=== PATIENT | male | born 1950 | race Caucasian/White ===

== ENCOUNTER 2020-05-06 21:53 | Observation (INO) | payer OTHER, BC ==
[2020-05-06 22:12] VITALS: BMI 29.5
[2020-05-07 00:14] LABS: BASO % 0.6 % (0-2.0); EOS % 1.7 % (0-4.5); HEMATOCRIT 35.3 % (35.4-49); HEMOGLOBIN 11.3 GM/dL (11.7-16.9); LYMPH % 9.2 % (8-40); MCH 28.7 pg (25.7-33.7); MCHC 32.2 g/dl (32.0-35.9); MEAN CELL VOLUME 89.1 fl (80-96); NEUT % 81.5 % (42.8-82.8); RBC 3.96 M/mm3 (4.00-5.60); RDW 14.1 % (11.9-15.9); WHITE BLOOD COUNT 8.8 K/mm3 (4.0-10.0)
[2020-05-07 00:20] LABS: MEAN PLT VOLUME 8.9 fl (7.5-11.1); PLATELET COUNT 165 K/MM3 (134-434)
[2020-05-07 00:28] LABS: INR 0.95 (0.83-1.09); PROTHROMBIN TIME (PATIENT) 11.5 SEC (9.7-13.0)
[2020-05-07 00:30] LABS: ACTIVATED PTT 28.5 SECONDS (25.2-36.5)
[2020-05-07 00:38] LABS: POTASSIUM 4.4 mmol/L (3.5-5.1)
[2020-05-07 00:40] LABS: ALBUMIN 3.3 g/dl (3.4-5.0); BLOOD UREA NITROGEN 30.2 mg/dL (7-18); CALCIUM 8.8 mg/dL (8.5-10.1)
[2020-05-07 00:43] LABS: CREATININE 1.5 mg/dL (0.55-1.3)
[2020-05-07 01:32] LABS: TOT PROT 6.7 g/dl (6.4-8.2)
[2020-05-07 01:37] LABS: BILIRUBIN,TOTAL 0.3 mg/dL (0.2-1)
[2020-05-07] MEDS ORDERED: SODIUM CHLORIDE 1,000 ML IV SCH (02:30)
[2020-05-07] MEDS ORDERED: HEPARIN NA (PORCINE) 5,000 UNITS/ML 1ML VIAL ONE ×2 (06:08→14:15)
[2020-05-07] MEDS: HEPARIN NA (PORCINE) 5,000 UNITS/ML 1ML VIAL SQ SCH ×2 (06:17→14:20)
[2020-05-07 06:30] LABS: HEMATOCRIT 34.4 % (35.4-49); MCH 28.4 pg (25.7-33.7); MCHC 31.9 g/dl (32.0-35.9); MEAN CELL VOLUME 89.1 fl (80-96); PLATELET COUNT 158 K/MM3 (134-434); RBC 3.86 M/mm3 (4.00-5.60); WHITE BLOOD COUNT 6.9 K/mm3 (4.0-10.0)
[2020-05-07 06:41] LABS: CHLORIDE 114 mmol/L (98-107); POTASSIUM 4.2 mmol/L (3.5-5.1); SODIUM 145 mmol/L (136-145)
[2020-05-07 06:42] LABS: ANION GAP 3 MMOL/L (8-16); BLOOD UREA NITROGEN 27.9 mg/dL (7-18); CALCIUM 8.4 mg/dL (8.5-10.1); CO2 29 mmol/L (21-32); GLUCOSE,RANDOM 107 mg/dL (74-106); MAGNESIUM 2.2 mg/dL (1.8-2.4)
[2020-05-07 06:45] LABS: CREATININE 1.5 mg/dL (0.55-1.3)
[2020-05-07] MEDS ORDERED: IPRATROPIUM BR 0.02% 0.5 MG/2.5 ML VIAL.NEB. NEB SCH (08:00)
[2020-05-07] MEDS ORDERED: TAMSULOSIN HCL 0.4 MG CAP PO SCH (08:30)
[2020-05-07 08:31] LABS: URINE COLOR YELLOW
[2020-05-07 08:32] LABS: PH,URINE 7.5 (5.0-8.0); URINE APPEARANCE CLEAR; URINE BILIRUBIN NEGATIVE (NEGATIVE); URINE GLUCOSE (UA) NEGATIVE (NEGATIVE); URINE KETONE NEGATIVE (NEGATIVE); URINE LEUK ESTERASE NEGATIVE (NEGATIVE); URINE NITRITE NEGATIVE (NEGATIVE); URINE PROTEIN NEGATIVE (NEGATIVE); URINE RBC 1.1 /uL (0-23.9); URINE UROBILINOGEN 0.2 mg/dL (0.2-1.0); URINE WBC 0.2 /uL (0-25.8)
[2020-05-07 08:33] LABS: EPI CELLS 0.5 /uL (0-25.1); HYALINE CASTS 0.12 /uL (0-3.1); URINE BACTERIA 8.6 /uL (0-1359)
[2020-05-07] MEDS ORDERED: clonazePAM 0.5 MG TABLET PO SCH (10:00)
[2020-05-07] MEDS ORDERED: POLYETHYLENE GLYCOL 3350 119 GM BTL PO SCH (10:00)
[2020-05-07] MEDS ORDERED: OLANZapine 7.5 MG TABLET PO SCH (10:00)
[2020-05-07] MEDS ORDERED: BACITRACIN 15 GM TUBE TOPICAL OINTMENT TP SCH (10:00)
[2020-05-07] MEDS ORDERED: LITHIUM CARBONATE 150 MG CAPSULE PO SCH (10:00)
[2020-05-07] MEDS ORDERED: risperiDONE 1 MG TABLET PO SCH (10:00)
[2020-05-07] MEDS ORDERED: OLANZAPINE 5 MG, OLANZAPINE 2.5 MG PO SCH (10:00)
[2020-05-07 14:33] LABS: CHOLESTEROL 173 mg/dL (50-200); LDL CHOLESTEROL (ONLY SJRH) 112 mg/dL (5-100); TRIGLYCERIDES 95 mg/dL (0-150)
[2020-05-07 14:36] LABS: HDL CHOLESTEROL 53 mg/dL (40-60)
[2020-05-07 14:37] LABS: N-TERMINAL BNP 38.5 pg/ml (5-125)
[2020-05-07] MEDS ORDERED: CEFTRIAXONE 1 GM in DEXTROSE 5%-WATER - 50 ML IVPB SCH (15:15)
[2020-05-07] MEDS ORDERED: CEFTRIAXONE 1 GM/50 ML BAG ONE (15:39)
[2020-05-07 15:46] VITALS: TEMP 98
[2020-05-07 16:55] VITALS: BP 143/77; PULSE 67
[2020-05-07] MEDS ORDERED: SENNOSIDES 8.6MG TABLET (FP) PO SCH (22:00)
== END 2020-05-07 18:50 ==
LOC: JER 21:53 → JERBED 05-07 02:21
PROVIDERS: ADMIT Hospitalist; ATTEND Internal Medicine
PROC: 3E03329 Introduction of Other Anti-infective into Peripheral Vein, Percutaneous Approach (ICD-10-PCS; principal; 2020-05-07)
PROC: 3E023GC Introduction of Other Therapeutic Substance into Muscle, Percutaneous Approach (ICD-10-PCS; 2020-05-07)
PROC: 3E0337Z Introduction of Electrolytic and Water Balance Substance into Peripheral Vein, Percutaneous Approach (ICD-10-PCS; 2020-05-07)
DX: S00.03XA Contusion of scalp, initial encounter (principal); R00.1 Bradycardia, unspecified; N40.0 Benign prostatic hyperplasia without lower urinary tract symptoms; L03.116 Cellulitis of left lower limb; W18.39XA Other fall on same level, initial encounter; Y93.89 Activity, other specified; Y92.129 Unspecified place in nursing home as the place of occurrence of the external cause; J44.9 Chronic obstructive pulmonary disease, unspecified; Z99.3 Dependence on wheelchair; F80.81 Childhood onset fluency disorder; H54.40 Blindness, one eye, unspecified eye; I45.10 Unspecified right bundle-branch block
CPT/HCPCS: 36415; 70450-TC; 71045-TC-FY; 72125-TC; 74176-TC; 76870-TC; 80048; 80053; 80061; 80178; 81003; 82140; 82272; 82607; 83036; 83721; 83735; 83880; 84443; 84484; 85025; 85027; 85610; 85730; 86780; 86850; 86900; 86901; 87077; 87086; 93005; 93010; 93306-TC; 93880-TC; 96361; 96365; 96372; 99285-25; C9803; G0378; J1644; U0003

== ENCOUNTER 2020-07-05 03:46 | Inpatient (IN) | payer OTHER ==
[2020-07-05] MEDS ORDERED: LIDOCAINE HCL 1%, 10 MG/ML (50 mL VIAL) SQ ONE (05:13)
[2020-07-05 05:19] LABS: HEMATOCRIT 37.8 % (35.4-49); HEMOGLOBIN 12.3 GM/dL (11.7-16.9); MCH 28.6 pg (25.7-33.7); MCHC 32.5 g/dl (32.0-35.9); MEAN PLT VOLUME 8.9 fl (7.5-11.1); PLATELET COUNT 165 K/MM3 (134-434); RBC 4.29 M/mm3 (4.00-5.60); RDW 14.4 % (11.9-15.9); WHITE BLOOD COUNT 6.5 K/mm3 (4.0-10.0)
[2020-07-05] MEDS ORDERED: LIDOCAINE HCL 2% (20ML MULTI-DOSE VIAL) ONE (05:20)
[2020-07-05 05:32] LABS: CHLORIDE 110 mmol/L (98-107); POTASSIUM 4.8 mmol/L (3.5-5.1); SODIUM 140 mmol/L (136-145)
[2020-07-05 05:34] LABS: ALBUMIN 3.4 g/dl (3.4-5.0); ANION GAP 3 MMOL/L (8-16); BLOOD UREA NITROGEN 39.9 mg/dL (7-18); CALCIUM 9.1 mg/dL (8.5-10.1); CO2 27 mmol/L (21-32); GLUCOSE,RANDOM 91 mg/dL (74-106)
[2020-07-05 05:37] LABS: SGOT/AST 13 U/L (15-37); SGPT/ALT 13 U/L (13-61)
[2020-07-05 05:39] LABS: BILIRUBIN,TOTAL 0.2 mg/dL (0.2-1); TOT PROT 6.8 g/dl (6.4-8.2)
[2020-07-05 05:40] LABS: ALK PHOS 75 U/L (45-117)
[2020-07-05] MEDS ORDERED: ACETAMINOPHEN 325 MG TABLET (FP) PO ONE (06:10)
[2020-07-05] MEDS ORDERED: ACETAMINOPHEN 325 MG TABLET (FP) ONE (06:53)
[2020-07-05] MEDS ORDERED: SODIUM CHLORIDE 1,000 ML IV STA (07:51)
[2020-07-05 08:30] LABS: URINE APPEARANCE CLEAR; URINE BILIRUBIN NEGATIVE (NEGATIVE); URINE COLOR YELLOW; URINE GLUCOSE (UA) NEGATIVE (NEGATIVE); URINE KETONE NEGATIVE (NEGATIVE); URINE LEUK ESTERASE NEGATIVE (NEGATIVE); URINE NITRITE NEGATIVE (NEGATIVE); URINE PROTEIN NEGATIVE (NEGATIVE); URINE UROBILINOGEN 0.2 mg/dL (0.2-1.0)
[2020-07-05] MEDS ORDERED: ALBUTEROL SO4 HFA INHALER IH PRN (10:52)
[2020-07-05] MEDS ORDERED: clonazePAM 0.5 MG TABLET PO PRN (10:52)
[2020-07-05] MEDS: SODIUM CHLORIDE 1,000 ML IV SCH (12:56)
[2020-07-05 17:27] VITALS: BMI 20.3
[2020-07-05] MEDS ORDERED: risperiDONE 2 MG TABLET PO SCH (22:00)
[2020-07-05] MEDS ORDERED: MIRTAZAPINE 30 MG TABLET PO SCH (22:00)
[2020-07-05] MEDS ORDERED: MIRTAZAPINE 15 MG TABLET (FP) ONE (22:14)
[2020-07-05] MEDS ORDERED: PT OWN MED DRAWER 7, Y5N ONE (22:15)
[2020-07-06] MEDS ORDERED: OLANZapine 7.5 MG TABLET PO SCH (07:00)
[2020-07-06] MEDS: TAMSULOSIN HCL 0.4 MG CAP PO SCH (08:45)
[2020-07-06] MEDS: risperiDONE 1 MG TABLET PO SCH ×2 (10:38→22:16)
[2020-07-06] MEDS: SODIUM CHLORIDE 1,000 ML IV SCH (11:53)
[2020-07-06 14:18] LABS: BASO % 0.7 % (0-2.0); EOS % 1.4 % (0-4.5); HEMATOCRIT 36.2 % (35.4-49); HEMOGLOBIN 11.6 GM/dl (11.7-16.9); LYMPH % 9.3 % (8-40); MCH 28.3 pg (25.7-33.7); MCHC 32.2 g/dl (32.0-35.9); MEAN CELL VOLUME 87.8 fl (80-96); MONO % 6.7 % (3.8-10.2); NEUT % 81.9 % (42.8-82.8); PLATELET COUNT 162 K/MM3 (134-434); RBC 4.12 M/mm3 (4.00-5.60); RDW 13.9 % (11.9-15.9); WHITE BLOOD COUNT 6.8 K/mm3 (4.0-10.8)
[2020-07-06 14:28] LABS: ALBUMIN 3.4 g/dl (3.4-5.0); BILIRUBIN,TOTAL 0.6 mg/dl (0.2-1); CALCIUM 8.8 mg/dl (8.5-10); CREATININE 1.6 mg/dl (0.55-1.3); PHOSPHOROUS 2.8 mg/dl (2.5-4.9); POTASSIUM 4.7 mmol/L (3.5-5.1); TOT PROT 6.1 g/dl (6.4-8.2)
[2020-07-06] MEDS: ACETAMINOPHEN 325 MG TABLET (FP) PO PRN (15:16)
[2020-07-06] MEDS: HEPARIN NA (PORCINE) 5,000 UNITS/ML 1ML VIAL SQ SCH (21:56)
[2020-07-06] MEDS: MIRTAZAPINE 15 MG TABLET (FP) PO SCH (22:16)
[2020-07-07] MEDS: HEPARIN NA (PORCINE) 5,000 UNITS/ML 1ML VIAL SQ SCH ×3 (05:59→21:14)
[2020-07-07] MEDS ORDERED: OLANZapine 5 MG TABLET ONE (08:03)
[2020-07-07] MEDS ORDERED: OLANZapine 2.5 MG TABLET ONE (08:03)
[2020-07-07] MEDS: OLANZAPINE 2.5 MG, OLANZAPINE 5 MG PO SCH (08:04)
[2020-07-07 09:21] LABS: BASO % 0.8 % (0-2.0); EOS % 1.8 % (0-4.5); HEMATOCRIT 39.4 % (35.4-49); HEMOGLOBIN 12.5 GM/dl (11.7-16.9); MCH 28.2 pg (25.7-33.7); MCHC 31.6 g/dl (32.0-35.9); MEAN CELL VOLUME 89.1 fl (80-96); MEAN PLT VOLUME 9.7 fl (7.5-11.1); MONO % 4.9 % (3.8-10.2); NEUT % 77.5 % (42.8-82.8); PLATELET COUNT 165 K/MM3 (134-434); RBC 4.42 M/mm3 (4.00-5.60); RDW 13.9 % (11.9-15.9); WHITE BLOOD COUNT 6.4 K/mm3 (4.0-10.8)
[2020-07-07] MEDS: risperiDONE 1 MG TABLET PO SCH ×2 (09:29→21:15)
[2020-07-07] MEDS: TAMSULOSIN HCL 0.4 MG CAP PO SCH (09:30)
[2020-07-07 09:31] LABS: ALBUMIN 3.5 g/dl (3.4-5.0); BILIRUBIN,TOTAL 0.6 mg/dl (0.2-1); CALCIUM 9.1 mg/dl (8.5-10); CREATININE 1.4 mg/dl (0.55-1.3); MAGNESIUM 2.1 mg/dL (1.8-2.4); POTASSIUM 4.5 mmol/L (3.5-5.1); TOT PROT 6.3 g/dl (6.4-8.2)
[2020-07-07] MEDS: SODIUM CHLORIDE 1,000 ML IV SCH (12:00)
[2020-07-07] MEDS: MIRTAZAPINE 15 MG TABLET (FP) PO SCH (21:15)
[2020-07-08] MEDS ORDERED: OLANZapine 2.5 MG TABLET ONE (06:03)
[2020-07-08] MEDS ORDERED: OLANZapine 5 MG TABLET ONE (06:03)
[2020-07-08] MEDS: OLANZAPINE 2.5 MG, OLANZAPINE 5 MG PO SCH (06:05)
[2020-07-08] MEDS: HEPARIN NA (PORCINE) 5,000 UNITS/ML 1ML VIAL SQ SCH ×4 (06:05→21:23)
[2020-07-08 08:23] LABS: CALCIUM 8.8 mg/dl (8.5-10); CREATININE 1.5 mg/dl (0.55-1.3); POTASSIUM 4.6 mmol/L (3.5-5.1)
[2020-07-08] MEDS: risperiDONE 1 MG TABLET PO SCH ×2 (10:09→21:17)
[2020-07-08] MEDS: TAMSULOSIN HCL 0.4 MG CAP PO SCH (10:09)
[2020-07-08] MEDS: MIRTAZAPINE 15 MG TABLET (FP) PO SCH (21:16)
[2020-07-08] MEDS: ACETAMINOPHEN 325 MG TABLET (FP) PO PRN (21:17)
[2020-07-08] MEDS ORDERED: ATORVASTATIN CA 10 MG TABLET (FP) PO SCH (22:00)
[2020-07-09] MEDS ORDERED: OLANZapine 5 MG TABLET ONE (06:08)
[2020-07-09] MEDS ORDERED: OLANZapine 2.5 MG TABLET ONE (06:08)
[2020-07-09] MEDS: OLANZAPINE 2.5 MG, OLANZAPINE 5 MG PO SCH (07:07)
[2020-07-09] MEDS: HEPARIN NA (PORCINE) 5,000 UNITS/ML 1ML VIAL SQ SCH (07:08)
[2020-07-09] MEDS: TAMSULOSIN HCL 0.4 MG CAP PO SCH (08:45)
[2020-07-09] MEDS: risperiDONE 1 MG TABLET PO SCH (10:45)
[2020-07-09 14:55] VITALS: BP 98/56; PULSE 68; TEMP 98.7
== END 2020-07-09 15:05 | DRG 918 ==
LOC: JER 03:46 → INTOOBSV 09:04 → JERBED 09:04 → UNDODISOB 14:32 → FM/S 17:18 → OBSVTOIN 07-08 14:18
PROVIDERS: ADMIT Internal Medicine; ATTEND Nurse Practitioner Acute Care
PROC: 0HQFXZZ Repair Right Hand Skin, External Approach (ICD-10-PCS; principal; 2020-07-05)
DX: T56.891A Toxic effect of other metals, accidental (unintentional), initial encounter (principal); R00.1 Bradycardia, unspecified; F20.9 Schizophrenia, unspecified; R26.9 Unspecified abnormalities of gait and mobility; S61.216A Laceration without foreign body of right little finger without damage to nail, initial encounter; J44.9 Chronic obstructive pulmonary disease, unspecified; S01.01XA Laceration without foreign body of scalp, initial encounter; N40.0 Benign prostatic hyperplasia without lower urinary tract symptoms; R55 Syncope and collapse; I44.0 Atrioventricular block, first degree; F41.9 Anxiety disorder, unspecified; W19.XXXA Unspecified fall, initial encounter; Y93.9 Activity, unspecified; Y92.89 Other specified places as the place of occurrence of the external cause; Y99.9 Unspecified external cause status
CPT/HCPCS: 36415; 70450-TC; 72125-TC; 80048; 80053; 80178; 81003; 82550; 83735; 84100; 84484; 85025; 85027; 87086; 93005; 93010; 97116-GP; 97162-GP; 99285-25; C9803; G0378; J1644; J2794; U0003

== ENCOUNTER 2020-09-14 00:17 | Inpatient (IN) | payer OTHER ==
[2020-09-14 01:24] LABS: BASO % 0.3 % (0-2.0); EOS % 0.1 % (0-4.5); HEMATOCRIT 45.2 % (35.4-49); HEMOGLOBIN 14.3 GM/dL (11.7-16.9); LYMPH % 4.1 % (8-40); MCH 28.5 pg (25.7-33.7); MCHC 31.8 g/dl (32.0-35.9); MEAN CELL VOLUME 89.8 fl (80-96); MEAN PLT VOLUME 10.6 fl (7.5-11.1); NEUT % 86.5 % (42.8-82.8); PLATELET COUNT 168 K/MM3 (134-434); RBC 5.03 M/mm3 (4.00-5.60); RDW 14.3 % (11.9-15.9); WHITE BLOOD COUNT 11.1 K/mm3 (4.0-10.0)
[2020-09-14 01:32] LABS: INR 0.98 (0.83-1.09); PROTHROMBIN TIME (PATIENT) 11.9 SEC (9.7-13.0)
[2020-09-14 01:34] LABS: ACTIVATED PTT 27.1 SECONDS (25.2-36.5)
[2020-09-14] MEDS ORDERED: PANTOPRAZOLE SODIUM 40 MG VIAL IVPUSH ONE (01:48)
[2020-09-14] MEDS ORDERED: CEFTRIAXONE 1 GM in DEXTROSE 5%-WATER - 100 ML IVPB ONE (01:49)
[2020-09-14] MEDS ORDERED: SODIUM CHLORIDE 0.9% 500 ML INFUS.BAG IV ONE ×2 (01:51→03:22)
[2020-09-14 02:00] LABS: CHLORIDE 115 mmol/L (98-107); POTASSIUM 4.8 mmol/L (3.5-5.1); SODIUM 149 mmol/L (136-145)
[2020-09-14 02:08] LABS: ALBUMIN 3.8 g/dl (3.4-5.0)
[2020-09-14 02:09] LABS: ANION GAP 4 MMOL/L (8-16); CALCIUM 10.4 mg/dL (8.5-10.1); CO2 31 mmol/L (21-32); GLUCOSE,RANDOM 110 mg/dL (74-106); LDH 296 U/L (87-246)
[2020-09-14 02:10] LABS: BLOOD UREA NITROGEN 59.4 mg/dL (7-18); IRON SERUM 28 ug/dL (50-175); SGOT/AST 19 U/L (15-37); SGPT/ALT 25 U/L (13-61)
[2020-09-14 02:11] LABS: BILIRUBIN,TOTAL 0.5 mg/dL (0.2-1); TOTAL IRON BINDING CAPACITY 370 ug/dL (250-450)
[2020-09-14 02:12] LABS: ALK PHOS 126 U/L (45-117); BILIRUBIN,DIRECT 0.1 mg/dL (0.0-0.2); CREATININE 3.1 mg/dL (0.55-1.3); TOT PROT 7.8 g/dl (6.4-8.2)
[2020-09-14] MEDS ORDERED: CEFTRIAXONE 1 GM/50 ML BAG ONE (02:35)
[2020-09-14] MEDS ORDERED: PANTOPRAZOLE SODIUM 40 MG VIAL ONE (02:35)
[2020-09-14 03:44] LABS: LIPASE 364 U/L (73-393)
[2020-09-14] MEDS: PANTOPRAZOLE SODIUM 80 MG in SODIUM CHLORIDE 100 ML IVPB SCH ×3 (04:39→23:09)
[2020-09-14] MEDS ORDERED: AZITHROMYCIN IVPB 500 MG in DEXTROSE 5%-WATER - 250 ML IVPB ONE (05:31)
[2020-09-14 05:52] LABS: EPI CELLS 18 /uL (0-25.1); HYALINE CASTS 2 /uL (0-3.1); PH,URINE 6.5 (5.0-8.0); URINE APPEARANCE CLOUDY; URINE BACTERIA 8 /uL (0-1359); URINE BILIRUBIN NEGATIVE (NEGATIVE); URINE COLOR RED; URINE GLUCOSE (UA) NEGATIVE (NEGATIVE); URINE KETONE NEGATIVE (NEGATIVE); URINE LEUK ESTERASE TRACE (NEGATIVE); URINE NITRITE NEGATIVE (NEGATIVE); URINE PROTEIN 1+ (NEGATIVE); URINE RBC 8490 /uL (0-23.9); URINE UROBILINOGEN 0.2 mg/dL (0.2-1.0); URINE WBC 12 /uL (0-25.8)
[2020-09-14] MEDS ORDERED: AZITHROMYCIN IVPB 500 MG/250 ML BAG IVPB ONE ×2 (06:40→06:43)
[2020-09-14] MEDS ORDERED: MAG HYDROX/AL HYDROX/SIMETH 30 ML UNIT-DOSE CUP PO PRN (11:44)
[2020-09-14 11:45] LABS: BASO % 0.3 % (0-2.0); HEMATOCRIT 38.2 % (35.4-49); HEMOGLOBIN 12.4 GM/dL (11.7-16.9); LYMPH % 4.1 % (8-40); MCH 28.6 pg (25.7-33.7); MCHC 32.4 g/dl (32.0-35.9); MEAN PLT VOLUME 10.4 fl (7.5-11.1); MONO % 8.4 % (3.8-10.2); NEUT % 87.2 % (42.8-82.8); PLATELET COUNT 159 K/MM3 (134-434); RBC 4.34 M/mm3 (4.00-5.60); RDW 14.1 % (11.9-15.9); WHITE BLOOD COUNT 11.2 K/mm3 (4.0-10.0)
[2020-09-14] MEDS ORDERED: MAGNESIUM HYDROX 2400MG/30ML ORAL SUSPENSION 30 ML CUP PO SCH (11:45)
[2020-09-14] MEDS ORDERED: PIPERACILLIN/TAZOB 3.375 GM 3.375 GM in DEXTROSE 5%-WATER - 50 ML IVPB ONE (11:55)
[2020-09-14] MEDS: DEXTROSE 5%-0.45% SALINE 1,000 ML IV SCH (12:05)
[2020-09-14 12:09] LABS: POTASSIUM 5.2 mmol/L (3.5-5.1)
[2020-09-14 12:11] LABS: CALCIUM 9.3 mg/dL (8.5-10.1)
[2020-09-14 12:12] LABS: BLOOD UREA NITROGEN 58.9 mg/dL (7-18); MAGNESIUM 2.9 mg/dL (1.8-2.4)
[2020-09-14 12:14] LABS: CREATININE 2.8 mg/dL (0.55-1.3)
[2020-09-14 12:15] LABS: PHOSPHOROUS 3.7 mg/dL (2.5-4.9)
[2020-09-14 12:16] LABS: BILIRUBIN,TOTAL 0.6 mg/dL (0.2-1); TOT PROT 6.5 g/dl (6.4-8.2)
[2020-09-14] MEDS ORDERED: PIPERACILLIN/TAZOB 3.375 GM 3.375 GM/50 ML BAG IVPB ONE (12:21)
[2020-09-14] MEDS: ALBUTEROL SO4 HFA INHALER IH SCH ×3 (15:04→23:09)
[2020-09-14] MEDS ORDERED: ALBUTEROL SO4 HFA INHALER IH ONE (18:20)
[2020-09-14] MEDS ORDERED: PIPERACILLIN/TAZOB 2.25 GM 2.25 GM/50 ML BAG IVPB ONE (18:21)
[2020-09-14] MEDS: PIPERACILLIN/TAZOB 2.25 GM 2.25 GM in DEXTROSE 5%-WATER - 50 ML IVPB SCH (18:29)
[2020-09-14] MEDS ORDERED: OLANZapine 7.5 MG TABLET PO SCH (22:00)
[2020-09-14] MEDS ORDERED: HEPARIN NA (PORCINE) 5,000 UNITS/ML 1ML VIAL SQ SCH (22:00)
[2020-09-14] MEDS ORDERED: risperiDONE 2 MG TABLET PO SCH (22:00)
[2020-09-14] MEDS ORDERED: MIRTAZAPINE 15 MG TABLET (FP) ONE (22:48)
[2020-09-14] MEDS ORDERED: OLANZapine 5 MG TABLET PO SCH (22:53)
[2020-09-14] MEDS: ATORVASTATIN CA 20 MG TABLET (FP) PO SCH (23:09)
[2020-09-14] MEDS: SENNOSIDES 8.6MG TABLET (FP) PO SCH (23:09)
[2020-09-14] MEDS: MIRTAZAPINE 30 MG TABLET PO SCH (23:09)
[2020-09-14] MEDS: risperiDONE 1 MG TABLET PO SCH (23:10)
[2020-09-15 00:09] VITALS: BMI 16.5
[2020-09-15] MEDS ORDERED: DEXTROSE 5%-WATER - 50 ML IVPB ONE ×3 (01:46→17:17)
[2020-09-15] MEDS ORDERED: PIPERACILLIN/TAZOBACTAM 2.25 GM VIAL IVPB ONE ×3 (01:46→17:17)
[2020-09-15] MEDS: PIPERACILLIN/TAZOB 2.25 GM 2.25 GM in DEXTROSE 5%-WATER - 50 ML IVPB SCH ×3 (01:54→17:41)
[2020-09-15] MEDS: DEXTROSE 5%-0.45% SALINE 1,000 ML IV SCH ×2 (01:55→10:00)
[2020-09-15] MEDS ORDERED: OLANZapine 5 MG TABLET PO SCH (07:00)
[2020-09-15 09:18] LABS: HEMOGLOBIN 12.3 GM/dL (11.7-16.9); LYMPH % 6.5 % (8-40)
[2020-09-15] MEDS: PANTOPRAZOLE SODIUM 80 MG in SODIUM CHLORIDE 100 ML IVPB SCH ×2 (09:20→10:50)
[2020-09-15 09:21] LABS: BASO % 0.1 % (0-2.0); EOS % 0.7 % (0-4.5); HEMATOCRIT 37.9 % (35.4-49); MCHC 32.4 g/dl (32.0-35.9); MEAN CELL VOLUME 89.6 fl (80-96); MEAN PLT VOLUME 10.5 fl (7.5-11.1); MONO % 6.9 % (3.8-10.2); NEUT % 85.8 % (42.8-82.8); PLATELET COUNT 145 K/MM3 (134-434); RBC 4.23 M/mm3 (4.00-5.60); RDW 14.6 % (11.9-15.9)
[2020-09-15 09:28] LABS: POTASSIUM 4.4 mmol/L (3.5-5.1)
[2020-09-15] MEDS ORDERED: PT OWN MED DRAWER 7, Y5N ONE ×3 (09:30→22:32)
[2020-09-15] MEDS: risperiDONE 1 MG TABLET PO SCH ×2 (09:35→22:48)
[2020-09-15] MEDS: TAMSULOSIN HCL 0.4 MG CAP PO SCH (09:36)
[2020-09-15 09:37] LABS: ALBUMIN 2.9 g/dl (3.4-5.0); BLOOD UREA NITROGEN 50.7 mg/dL (7-18); CALCIUM 9.5 mg/dL (8.5-10.1)
[2020-09-15 09:38] LABS: TOT PROT 6.5 g/dl (6.4-8.2)
[2020-09-15 09:40] LABS: CREATININE 2.8 mg/dL (0.55-1.3)
[2020-09-15 09:41] LABS: BILIRUBIN,TOTAL 0.5 mg/dL (0.2-1)
[2020-09-15] MEDS ORDERED: FAMOTIDINE 20 MG TABLET PO SCH (10:00)
[2020-09-15] MEDS ORDERED: POLYETHYLENE GLYCOL 3350 119 GM BTL PO SCH (10:00)
[2020-09-15] MEDS: ALBUTEROL SO4 HFA INHALER IH SCH ×4 (10:51→22:50)
[2020-09-15] MEDS: clonazePAM 0.5 MG TABLET PO SCH ×3 (12:27→22:49)
[2020-09-15] MEDS: POLYETHYLENE GLYCOL 3350 119 GM BTL PO SCH ×2 (15:09→22:49)
[2020-09-15] MEDS ORDERED: MIRTAZAPINE 15 MG TABLET (FP) ONE (21:15)
[2020-09-15] MEDS: MIRTAZAPINE 30 MG TABLET PO SCH (22:48)
[2020-09-15] MEDS: SENNOSIDES 8.6MG TABLET (FP) PO SCH (22:49)
[2020-09-15] MEDS: PANTOPRAZOLE 40 MG TABLET PO SCH (22:49)
[2020-09-15] MEDS: ATORVASTATIN CA 20 MG TABLET (FP) PO SCH (22:49)
[2020-09-16] MEDS ORDERED: DEXTROSE 5%-WATER - 50 ML IVPB ONE ×4 (00:45→17:15)
[2020-09-16] MEDS ORDERED: PIPERACILLIN/TAZOBACTAM 2.25 GM VIAL IVPB ONE ×4 (00:45→17:15)
[2020-09-16] MEDS: PIPERACILLIN/TAZOB 2.25 GM 2.25 GM in DEXTROSE 5%-WATER - 50 ML IVPB SCH ×3 (01:02→17:19)
[2020-09-16] MEDS: POLYETHYLENE GLYCOL 3350 119 GM BTL PO SCH ×3 (06:07→23:12)
[2020-09-16 09:03] LABS: HEMATOCRIT 33.4 % (35.4-49); HEMOGLOBIN 10.8 GM/dL (11.7-16.9); MCH 28.8 pg (25.7-33.7); MCHC 32.3 g/dl (32.0-35.9); MEAN CELL VOLUME 89.2 fl (80-96); PLATELET COUNT 144 K/MM3 (134-434); RBC 3.74 M/mm3 (4.00-5.60); RDW 14.4 % (11.9-15.9); WHITE BLOOD COUNT 8.5 K/mm3 (4.0-10.0)
[2020-09-16 09:20] LABS: POTASSIUM 4.1 mmol/L (3.5-5.1)
[2020-09-16 09:30] LABS: ALBUMIN 2.6 g/dl (3.4-5.0); CALCIUM 9.3 mg/dL (8.5-10.1)
[2020-09-16 09:31] LABS: BLOOD UREA NITROGEN 34.3 mg/dL (7-18)
[2020-09-16 09:34] LABS: CREATININE 2.4 mg/dL (0.55-1.3)
[2020-09-16 09:35] LABS: BILIRUBIN,TOTAL 0.5 mg/dL (0.2-1); TOT PROT 6.1 g/dl (6.4-8.2)
[2020-09-16] MEDS: clonazePAM 0.5 MG TABLET PO SCH ×2 (10:00→23:12)
[2020-09-16] MEDS: TAMSULOSIN HCL 0.4 MG CAP PO SCH (10:00)
[2020-09-16] MEDS: ACETAMINOPHEN 325 MG TABLET (FP) PO PRN (10:00)
[2020-09-16] MEDS: PANTOPRAZOLE 40 MG TABLET PO SCH ×2 (10:00→23:12)
[2020-09-16] MEDS ORDERED: PT OWN MED DRAWER 7, Y5N ONE ×2 (10:02→21:37)
[2020-09-16] MEDS: risperiDONE 1 MG TABLET PO SCH ×2 (10:02→23:13)
[2020-09-16] MEDS: ALBUTEROL SO4 HFA INHALER IH SCH ×4 (10:05→23:13)
[2020-09-16] MEDS: NYSTATIN 500,000 UNITS/5 ML SUSPENSION PO SCH ×2 (13:56→17:57)
[2020-09-16] MEDS: DEXTROSE 5%-0.45% SALINE 1,000 ML IV SCH ×2 (13:57)
[2020-09-16] MEDS ORDERED: DEXTROSE 5%-WATER - 1,000 ML IV SCH ×2 (16:30)
[2020-09-16] MEDS ORDERED: MIRTAZAPINE 15 MG TABLET (FP) ONE (21:35)
[2020-09-16] MEDS: MIRTAZAPINE 30 MG TABLET PO SCH (23:12)
[2020-09-16] MEDS: ATORVASTATIN CA 20 MG TABLET (FP) PO SCH (23:12)
[2020-09-16] MEDS: SENNOSIDES 8.6MG TABLET (FP) PO SCH (23:13)
[2020-09-17] MEDS: clonazePAM 0.5 MG TABLET PO SCH ×4 (00:48→22:36)
[2020-09-17] MEDS: risperiDONE 1 MG TABLET PO SCH ×3 (00:49→22:36)
[2020-09-17] MEDS: MIRTAZAPINE 30 MG TABLET PO SCH ×2 (00:49→22:36)
[2020-09-17] MEDS ORDERED: DEXTROSE 5%-WATER - 50 ML IVPB ONE ×3 (01:21→17:13)
[2020-09-17] MEDS ORDERED: PIPERACILLIN/TAZOBACTAM 2.25 GM VIAL IVPB ONE ×3 (01:21→17:13)
[2020-09-17] MEDS: NYSTATIN 500,000 UNITS/5 ML SUSPENSION PO SCH ×4 (01:23→17:15)
[2020-09-17] MEDS: PIPERACILLIN/TAZOB 2.25 GM 2.25 GM in DEXTROSE 5%-WATER - 50 ML IVPB SCH ×3 (01:26→17:15)
[2020-09-17] MEDS: POLYETHYLENE GLYCOL 3350 119 GM BTL PO SCH ×3 (06:12→22:37)
[2020-09-17 08:27] LABS: CHLORIDE 119 mmol/L (98-107)
[2020-09-17 08:28] LABS: CALCIUM 9.4 mg/dL (8.5-10.1)
[2020-09-17 08:29] LABS: ALBUMIN 2.5 g/dl (3.4-5.0); BLOOD UREA NITROGEN 28.2 mg/dL (7-18); CO2 29 mmol/L (21-32); GLUCOSE,RANDOM 92 mg/dL (74-106); MAGNESIUM 2.6 mg/dL (1.8-2.4)
[2020-09-17 08:31] LABS: EPI CELLS 11 /uL (0-25.1); HYALINE CASTS 0 /uL (0-3.1); URINE APPEARANCE CLEAR; URINE BACTERIA 26 /uL (0-1359); URINE BILIRUBIN NEGATIVE (NEGATIVE); URINE COLOR YELLOW; URINE GLUCOSE (UA) NEGATIVE (NEGATIVE); URINE KETONE NEGATIVE (NEGATIVE); URINE LEUK ESTERASE TRACE (NEGATIVE); URINE NITRITE NEGATIVE (NEGATIVE); URINE PROTEIN NEGATIVE (NEGATIVE); URINE RBC 7 /uL (0-23.9); URINE UROBILINOGEN 0.2 mg/dL (0.2-1.0); URINE WBC 9 /uL (0-25.8)
[2020-09-17 08:32] LABS: CREATININE 2.2 mg/dL (0.55-1.3); SGOT/AST 17 U/L (15-37); SGPT/ALT 18 U/L (13-61)
[2020-09-17 08:33] LABS: BILIRUBIN,TOTAL 0.5 mg/dL (0.2-1)
[2020-09-17 08:34] LABS: TOT PROT 5.8 g/dl (6.4-8.2)
[2020-09-17 08:35] LABS: ALK PHOS 73 U/L (45-117)
[2020-09-17 08:39] LABS: ANION GAP 14 MMOL/L (8-16)
[2020-09-17 08:48] LABS: SODIUM 161 mmol/L (136-145)
[2020-09-17] MEDS: PANTOPRAZOLE 40 MG TABLET PO SCH ×2 (09:04→22:35)
[2020-09-17] MEDS: ALBUTEROL SO4 HFA INHALER IH SCH ×4 (09:04→22:37)
[2020-09-17] MEDS: TAMSULOSIN HCL 0.4 MG CAP PO SCH (09:04)
[2020-09-17] MEDS ORDERED: DEXTROSE 5%-WATER - 1,000 ML IV SCH (11:17)
[2020-09-17 16:28] LABS: CALCIUM 8.7 mg/dL (8.5-10.1)
[2020-09-17 16:29] LABS: BLOOD UREA NITROGEN 24.3 mg/dL (7-18)
[2020-09-17 16:32] LABS: CREATININE 2.1 mg/dL (0.55-1.3)
[2020-09-17] MEDS: DEXTROSE 5%-WATER - 1,000 ML IV SCH (17:11)
[2020-09-17] MEDS ORDERED: MIRTAZAPINE 15 MG TABLET (FP) ONE (21:23)
[2020-09-17] MEDS ORDERED: PT OWN MED DRAWER 7, Y5N ONE (21:26)
[2020-09-17] MEDS: SENNOSIDES 8.6MG TABLET (FP) PO SCH (22:35)
[2020-09-17] MEDS: ATORVASTATIN CA 20 MG TABLET (FP) PO SCH (22:36)
[2020-09-18] MEDS ORDERED: PIPERACILLIN/TAZOBACTAM 2.25 GM VIAL IVPB ONE ×3 (00:20→16:41)
[2020-09-18] MEDS ORDERED: DEXTROSE 5%-WATER - 50 ML IVPB ONE ×3 (00:20→16:42)
[2020-09-18] MEDS: NYSTATIN 500,000 UNITS/5 ML SUSPENSION PO SCH ×4 (00:41→18:17)
[2020-09-18] MEDS: PIPERACILLIN/TAZOB 2.25 GM 2.25 GM in DEXTROSE 5%-WATER - 50 ML IVPB SCH ×3 (01:00→18:17)
[2020-09-18] MEDS: POLYETHYLENE GLYCOL 3350 119 GM BTL PO SCH ×3 (05:33→22:04)
[2020-09-18] MEDS: DEXTROSE 5%-WATER - 1,000 ML IV SCH ×2 (10:03→18:17)
[2020-09-18] MEDS: clonazePAM 0.5 MG TABLET PO SCH ×2 (10:46→22:04)
[2020-09-18] MEDS: TAMSULOSIN HCL 0.4 MG CAP PO SCH (10:49)
[2020-09-18] MEDS: PANTOPRAZOLE 40 MG TABLET PO SCH ×2 (10:49→22:04)
[2020-09-18] MEDS: ACETAMINOPHEN 325 MG TABLET (FP) PO PRN ×2 (10:49→22:03)
[2020-09-18] MEDS: risperiDONE 1 MG TABLET PO SCH ×2 (10:50→22:04)
[2020-09-18] MEDS: ALBUTEROL SO4 HFA INHALER IH SCH ×4 (10:50→21:50)
[2020-09-18] MEDS ORDERED: PT OWN MED DRAWER 7, Y5N ONE (17:10)
[2020-09-18] MEDS ORDERED: MIRTAZAPINE 15 MG TABLET (FP) ONE (21:00)
[2020-09-18] MEDS: MIRTAZAPINE 30 MG TABLET PO SCH (22:04)
[2020-09-18] MEDS: SENNOSIDES 8.6MG TABLET (FP) PO SCH (22:04)
[2020-09-18] MEDS: ATORVASTATIN CA 20 MG TABLET (FP) PO SCH (22:04)
[2020-09-19] MEDS ORDERED: PIPERACILLIN/TAZOBACTAM 2.25 GM VIAL IVPB ONE ×3 (00:24→16:22)
[2020-09-19] MEDS ORDERED: DEXTROSE 5%-WATER - 50 ML IVPB ONE ×3 (00:25→16:22)
[2020-09-19] MEDS: NYSTATIN 500,000 UNITS/5 ML SUSPENSION PO SCH ×4 (00:44→18:07)
[2020-09-19] MEDS: PIPERACILLIN/TAZOB 2.25 GM 2.25 GM in DEXTROSE 5%-WATER - 50 ML IVPB SCH ×3 (01:00→17:59)
[2020-09-19] MEDS: POLYETHYLENE GLYCOL 3350 119 GM BTL PO SCH ×3 (05:54→22:29)
[2020-09-19 09:19] LABS: POTASSIUM 4.5 mmol/L (3.5-5.1)
[2020-09-19 09:24] LABS: ALBUMIN 2.2 g/dl (3.4-5.0); CALCIUM 8.4 mg/dL (8.5-10.1)
[2020-09-19 09:25] LABS: BLOOD UREA NITROGEN 21.4 mg/dL (7-18)
[2020-09-19 09:29] LABS: BILIRUBIN,TOTAL 0.6 mg/dL (0.2-1); TOT PROT 5.2 g/dl (6.4-8.2)
[2020-09-19] MEDS: TAMSULOSIN HCL 0.4 MG CAP PO SCH (10:59)
[2020-09-19] MEDS: clonazePAM 0.5 MG TABLET PO SCH ×2 (11:00→22:28)
[2020-09-19] MEDS: ALBUTEROL SO4 HFA INHALER IH SCH ×4 (11:01→22:37)
[2020-09-19] MEDS: PANTOPRAZOLE 40 MG TABLET PO SCH ×2 (11:01→22:27)
[2020-09-19] MEDS ORDERED: PT OWN MED DRAWER 7, Y5N ONE ×2 (11:04→21:56)
[2020-09-19] MEDS: ACETAMINOPHEN 325 MG TABLET (FP) PO PRN (11:07)
[2020-09-19] MEDS: risperiDONE 1 MG TABLET PO SCH ×2 (11:07→22:27)
[2020-09-19] MEDS ORDERED: IRON SUCROSE INJECTION 200 MG in SODIUM CHLORIDE 90 ML IVPB ONE (15:00)
[2020-09-19] MEDS: DEXTROSE 5%-WATER - 1,000 ML IV SCH (15:55)
[2020-09-19] MEDS ORDERED: MIRTAZAPINE 15 MG TABLET (FP) ONE (21:53)
[2020-09-19] MEDS: SENNOSIDES 8.6MG TABLET (FP) PO SCH (22:27)
[2020-09-19] MEDS: MIRTAZAPINE 30 MG TABLET PO SCH (22:27)
[2020-09-19] MEDS: ATORVASTATIN CA 20 MG TABLET (FP) PO SCH (22:27)
[2020-09-20] MEDS ORDERED: PIPERACILLIN/TAZOBACTAM 2.25 GM VIAL IVPB ONE ×3 (02:39→18:38)
[2020-09-20] MEDS ORDERED: DEXTROSE 5%-WATER - 50 ML IVPB ONE ×3 (02:39→18:38)
[2020-09-20] MEDS: PIPERACILLIN/TAZOB 2.25 GM 2.25 GM in DEXTROSE 5%-WATER - 50 ML IVPB SCH ×3 (02:46→18:40)
[2020-09-20] MEDS: NYSTATIN 500,000 UNITS/5 ML SUSPENSION PO SCH ×4 (02:47→18:16)
[2020-09-20] MEDS: POLYETHYLENE GLYCOL 3350 119 GM BTL PO SCH ×3 (06:09→21:36)
[2020-09-20] MEDS ORDERED: PT OWN MED DRAWER 7, Y5N ONE ×2 (08:40→21:25)
[2020-09-20] MEDS: TAMSULOSIN HCL 0.4 MG CAP PO SCH (08:51)
[2020-09-20] MEDS: DEXTROSE 5%-WATER - 1,000 ML IV SCH (08:52)
[2020-09-20] MEDS: clonazePAM 0.5 MG TABLET PO SCH ×3 (08:53→21:33)
[2020-09-20] MEDS: PANTOPRAZOLE 40 MG TABLET PO SCH ×3 (08:53→21:32)
[2020-09-20] MEDS: risperiDONE 1 MG TABLET PO SCH ×3 (08:53→21:33)
[2020-09-20 09:00] LABS: BASO % 0.3 % (0-2.0); EOS % 1.6 % (0-4.5); HEMATOCRIT 32.4 % (35.4-49); HEMOGLOBIN 10.5 GM/dL (11.7-16.9); LYMPH % 10.1 % (8-40); MCH 28.6 pg (25.7-33.7); MCHC 32.4 g/dl (32.0-35.9); MEAN CELL VOLUME 88.3 fl (80-96); MEAN PLT VOLUME 10.2 fl (7.5-11.1); MONO % 6.4 % (3.8-10.2); NEUT % 81.6 % (42.8-82.8); PLATELET COUNT 154 K/MM3 (134-434); RBC 3.67 M/mm3 (4.00-5.60); RDW 13.9 % (11.9-15.9); WHITE BLOOD COUNT 7.5 K/mm3 (4.0-10.0)
[2020-09-20 09:21] LABS: POTASSIUM 4.3 mmol/L (3.5-5.1)
[2020-09-20 09:22] LABS: CALCIUM 8.3 mg/dL (8.5-10.1)
[2020-09-20 09:23] LABS: BLOOD UREA NITROGEN 23.2 mg/dL (7-18)
[2020-09-20] MEDS: ALBUTEROL SO4 HFA INHALER IH SCH ×4 (09:25→21:38)
[2020-09-20 09:26] LABS: CREATININE 1.9 mg/dL (0.55-1.3)
[2020-09-20] MEDS: DEXTROSE 5%-0.45% SALINE 1,000 ML IV SCH (12:05)
[2020-09-20] MEDS ORDERED: MIRTAZAPINE 15 MG TABLET (FP) ONE (21:23)
[2020-09-20] MEDS: MIRTAZAPINE 30 MG TABLET PO SCH (21:33)
[2020-09-20] MEDS: ATORVASTATIN CA 20 MG TABLET (FP) PO SCH (21:33)
[2020-09-20] MEDS: SENNOSIDES 8.6MG TABLET (FP) PO SCH (21:36)
[2020-09-21] MEDS ORDERED: PIPERACILLIN/TAZOBACTAM 2.25 GM VIAL IVPB ONE ×2 (01:04→12:31)
[2020-09-21] MEDS ORDERED: DEXTROSE 5%-WATER - 50 ML IVPB ONE ×2 (01:05→12:31)
[2020-09-21] MEDS: NYSTATIN 500,000 UNITS/5 ML SUSPENSION PO SCH ×4 (01:09→17:41)
[2020-09-21] MEDS: PIPERACILLIN/TAZOB 2.25 GM 2.25 GM in DEXTROSE 5%-WATER - 50 ML IVPB SCH ×2 (01:09→12:44)
[2020-09-21] MEDS ORDERED: LORazepam 2 MG/ML SDV VIAL IVPUSH ONE ×2 (01:15→13:30)
[2020-09-21] MEDS: POLYETHYLENE GLYCOL 3350 119 GM BTL PO SCH ×4 (05:52→23:42)
[2020-09-21] MEDS: DEXTROSE 5%-0.45% SALINE 1,000 ML IV SCH (06:23)
[2020-09-21 10:39] LABS: BASO % 0.3 % (0-2.0); EOS % 1.5 % (0-4.5); HEMATOCRIT 33.4 % (35.4-49); HEMOGLOBIN 11.2 GM/dL (11.7-16.9); MCHC 33.4 g/dl (32.0-35.9); MEAN CELL VOLUME 86.9 fl (80-96); MEAN PLT VOLUME 9.8 fl (7.5-11.1); MONO % 5.8 % (3.8-10.2); NEUT % 80.4 % (42.8-82.8); PLATELET COUNT 170 K/MM3 (134-434); RBC 3.85 M/mm3 (4.00-5.60); RDW 14.2 % (11.9-15.9); WHITE BLOOD COUNT 6.7 K/mm3 (4.0-10.0)
[2020-09-21 10:48] LABS: POTASSIUM 4.5 mmol/L (3.5-5.1)
[2020-09-21 10:50] LABS: BLOOD UREA NITROGEN 24.7 mg/dL (7-18); CALCIUM 9.1 mg/dL (8.5-10.1)
[2020-09-21 10:51] LABS: ALBUMIN 2.9 g/dl (3.4-5.0)
[2020-09-21 10:53] LABS: CREATININE 1.8 mg/dL (0.55-1.3)
[2020-09-21 10:55] LABS: BILIRUBIN,TOTAL 0.4 mg/dL (0.2-1); TOT PROT 6.5 g/dl (6.4-8.2)
[2020-09-21] MEDS ORDERED: PT OWN MED DRAWER 7, Y5N ONE ×3 (11:23→23:21)
[2020-09-21] MEDS: clonazePAM 0.5 MG TABLET PO SCH ×2 (12:28→23:32)
[2020-09-21] MEDS: TAMSULOSIN HCL 0.4 MG CAP PO SCH (12:29)
[2020-09-21] MEDS: PANTOPRAZOLE 40 MG TABLET PO SCH ×2 (12:29→23:28)
[2020-09-21] MEDS: risperiDONE 1 MG TABLET PO SCH ×2 (12:29→23:29)
[2020-09-21] MEDS: ALBUTEROL SO4 HFA INHALER IH SCH ×4 (12:29→23:38)
[2020-09-21] MEDS ORDERED: LORazepam 2 MG/ML SDV VIAL ONE (13:41)
[2020-09-21] MEDS ORDERED: DEXTROSE 5%-WATER - 1,000 ML IV SCH (14:30)
[2020-09-21] MEDS ORDERED: MIRTAZAPINE 15 MG TABLET (FP) ONE (23:20)
[2020-09-21] MEDS: ATORVASTATIN CA 20 MG TABLET (FP) PO SCH (23:28)
[2020-09-21] MEDS: MIRTAZAPINE 30 MG TABLET PO SCH (23:29)
[2020-09-21] MEDS: SENNOSIDES 8.6MG TABLET (FP) PO SCH (23:31)
[2020-09-22] MEDS: NYSTATIN 500,000 UNITS/5 ML SUSPENSION PO SCH ×4 (00:54→17:12)
[2020-09-22] MEDS: POLYETHYLENE GLYCOL 3350 119 GM BTL PO SCH ×3 (06:45→23:22)
[2020-09-22] MEDS: TAMSULOSIN HCL 0.4 MG CAP PO SCH (08:00)
[2020-09-22 09:14] LABS: POTASSIUM 4.5 mmol/L (3.5-5.1)
[2020-09-22 09:17] LABS: BLOOD UREA NITROGEN 21.7 mg/dL (7-18); CALCIUM 8.8 mg/dL (8.5-10.1)
[2020-09-22 09:18] LABS: ALBUMIN 2.7 g/dl (3.4-5.0)
[2020-09-22 09:20] LABS: CREATININE 1.6 mg/dL (0.55-1.3)
[2020-09-22 09:22] LABS: BILIRUBIN,TOTAL 0.3 mg/dL (0.2-1); TOT PROT 6.1 g/dl (6.4-8.2)
[2020-09-22] MEDS: PANTOPRAZOLE 40 MG TABLET PO SCH ×2 (09:50→23:21)
[2020-09-22] MEDS: clonazePAM 0.5 MG TABLET PO SCH ×2 (09:50→23:22)
[2020-09-22] MEDS ORDERED: PT OWN MED DRAWER 7, Y5N ONE ×2 (09:53→23:03)
[2020-09-22] MEDS: risperiDONE 1 MG TABLET PO SCH ×2 (09:54→23:22)
[2020-09-22] MEDS: ALBUTEROL SO4 HFA INHALER IH SCH ×4 (09:55→23:26)
[2020-09-22] MEDS: DEXTROSE 5%-WATER - 1,000 ML IV SCH (16:40)
[2020-09-22] MEDS: ATORVASTATIN CA 20 MG TABLET (FP) PO SCH (23:21)
[2020-09-22] MEDS: SENNOSIDES 8.6MG TABLET (FP) PO SCH (23:22)
[2020-09-22] MEDS: MIRTAZAPINE 30 MG TABLET PO SCH (23:22)
[2020-09-23] MEDS: NYSTATIN 500,000 UNITS/5 ML SUSPENSION PO SCH ×4 (02:10→17:37)
[2020-09-23] MEDS: POLYETHYLENE GLYCOL 3350 119 GM BTL PO SCH ×3 (06:41→22:30)
[2020-09-23] MEDS: DEXTROSE 5%-WATER - 1,000 ML IV SCH ×3 (06:43→23:26)
[2020-09-23] MEDS ORDERED: PT OWN MED DRAWER 7, Y5N ONE ×3 (09:51→22:28)
[2020-09-23] MEDS: clonazePAM 0.5 MG TABLET PO SCH ×2 (09:52→22:33)
[2020-09-23] MEDS: risperiDONE 1 MG TABLET PO SCH ×2 (09:52→22:31)
[2020-09-23] MEDS: TAMSULOSIN HCL 0.4 MG CAP PO SCH (09:52)
[2020-09-23] MEDS: ALBUTEROL SO4 HFA INHALER IH SCH ×4 (09:53→22:24)
[2020-09-23] MEDS: PANTOPRAZOLE 40 MG TABLET PO SCH ×2 (09:53→22:31)
[2020-09-23] MEDS: MIRTAZAPINE 30 MG TABLET PO SCH (22:30)
[2020-09-23] MEDS: SENNOSIDES 8.6MG TABLET (FP) PO SCH (22:31)
[2020-09-23] MEDS: ATORVASTATIN CA 20 MG TABLET (FP) PO SCH (22:31)
[2020-09-24] MEDS: NYSTATIN 500,000 UNITS/5 ML SUSPENSION PO SCH ×3 (01:10→11:51)
[2020-09-24] MEDS: POLYETHYLENE GLYCOL 3350 119 GM BTL PO SCH ×2 (05:57→14:28)
[2020-09-24 08:42] LABS: POTASSIUM 4.4 mmol/L (3.5-5.1)
[2020-09-24 08:46] LABS: CALCIUM 8.4 mg/dL (8.5-10.1)
[2020-09-24 08:47] LABS: ALBUMIN 2.5 g/dl (3.4-5.0); BLOOD UREA NITROGEN 32.8 mg/dL (7-18)
[2020-09-24 08:50] LABS: CREATININE 1.7 mg/dL (0.55-1.3)
[2020-09-24 08:51] LABS: BILIRUBIN,TOTAL 0.2 mg/dL (0.2-1); TOT PROT 5.6 g/dl (6.4-8.2)
[2020-09-24] MEDS ORDERED: PT OWN MED DRAWER 7, Y5N ONE (09:58)
[2020-09-24] MEDS: ALBUTEROL SO4 HFA INHALER IH SCH ×2 (10:02→14:27)
[2020-09-24] MEDS: clonazePAM 0.5 MG TABLET PO SCH (10:03)
[2020-09-24] MEDS: TAMSULOSIN HCL 0.4 MG CAP PO SCH (10:03)
[2020-09-24] MEDS: PANTOPRAZOLE 40 MG TABLET PO SCH (10:03)
[2020-09-24] MEDS: risperiDONE 1 MG TABLET PO SCH (10:04)
[2020-09-24 10:09] LABS: SARS-CoV-2 NAA Not Detected (Not Detected)
[2020-09-24 15:34] VITALS: BP 105/54; PULSE 76; TEMP 97.2
== END 2020-09-24 17:24 | DRG 377 ==
LOC: JER 00:17 → JERBED 05:41 → J6S 21:35
PROVIDERS: ADMIT Internal Medicine; ATTEND Internal Medicine
PROC: 0DB98ZX Excision of Duodenum, Via Natural or Artificial Opening Endoscopic, Diagnostic (ICD-10-PCS; 2020-09-21)
PROC: 0DB68ZX Excision of Stomach, Via Natural or Artificial Opening Endoscopic, Diagnostic (ICD-10-PCS; 2020-09-21)
PROC: 0DB58ZX Excision of Esophagus, Via Natural or Artificial Opening Endoscopic, Diagnostic (ICD-10-PCS; principal; 2020-09-21 10:30)
DX: K92.0 Hematemesis (principal); J69.0 Pneumonitis due to inhalation of food and vomit; E43 Unspecified severe protein-calorie malnutrition; N17.9 Acute kidney failure, unspecified; Z68.1 Body mass index [BMI] 19.9 or less, adult; E87.0 Hyperosmolality and hypernatremia; K22.10 Ulcer of esophagus without bleeding; R64 Cachexia; J44.9 Chronic obstructive pulmonary disease, unspecified; F31.9 Bipolar disorder, unspecified; F20.9 Schizophrenia, unspecified; R31.29 Other microscopic hematuria; N18.9 Chronic kidney disease, unspecified; K56.41 Fecal impaction; D64.9 Anemia, unspecified; K44.9 Diaphragmatic hernia without obstruction or gangrene; K21.00 Gastro-esophageal reflux disease with esophagitis, without bleeding; K76.89 Other specified diseases of liver; R13.10 Dysphagia, unspecified; K31.7 Polyp of stomach and duodenum
CPT/HCPCS: 36415; 70450-TC; 71045-TC-FY; 71250-TC; 74176-TC; 74230-TC-FY; 76705-TC; 76775-TC; 80048; 80053; 80178; 81003; 82248; 82272; 82550; 82607; 82728; 82746; 83010; 83540; 83550; 83605; 83615; 83690; 83735; 84100; 84443; 84484; 85025; 85027; 85045; 85610; 85730; 86140; 86850; 86900; 86901; 87040; 87086; 88305-TC; 92611-GN; 93005; 93010; 97116-GP; 97161-GP; 99285-25; C9803; J1756; J2794; U0003; U0005

== ENCOUNTER 2020-09-25 18:49 | Inpatient (IN) | payer OTHER ==
[2020-09-25 19:43] VITALS: BMI 20.2
[2020-09-25] MEDS ORDERED: SODIUM CHLORIDE 0.9% 500 ML INFUS.BAG IV ONE ×2 (20:08→23:22)
[2020-09-25] MEDS ORDERED: ONDANSETRON 4 MG/2 ML VIAL IVPUSH ONE (20:08)
[2020-09-25] MEDS ORDERED: FAMOTIDINE 20 MG/50 ML IVPB 20 MG/50 ML MG IVPB ONE ×2 (20:08→20:53)
[2020-09-25] MEDS ORDERED: ONDANSETRON 4 MG/2 ML VIAL ONE (20:14)
[2020-09-25 20:53] LABS: BASO % 0.4 % (0-2.0); EOS % 0.2 % (0-4.5); HEMATOCRIT 35.4 % (35.4-49); HEMOGLOBIN 11.7 GM/dL (11.7-16.9); LYMPH % 4.8 % (8-40); MCHC 33.1 g/dl (32.0-35.9); MEAN CELL VOLUME 87.6 fl (80-96); MEAN PLT VOLUME 10.1 fl (7.5-11.1); NEUT % 90.6 % (42.8-82.8); PLATELET COUNT 195 K/MM3 (134-434); RBC 4.04 M/mm3 (4.00-5.60); RDW 14.8 % (11.9-15.9); WHITE BLOOD COUNT 9.8 K/mm3 (4.0-10.0)
[2020-09-25 21:03] LABS: INR 1.04 (0.83-1.09); PROTHROMBIN TIME (PATIENT) 12.6 SEC (9.7-13.0)
[2020-09-25 21:10] LABS: CALCIUM 9.2 mg/dL (8.5-10.1)
[2020-09-25 21:12] LABS: BLOOD UREA NITROGEN 34.7 mg/dL (7-18)
[2020-09-25 21:14] LABS: CREATININE 1.8 mg/dL (0.55-1.3)
[2020-09-25 21:15] LABS: BILIRUBIN,TOTAL 0.3 mg/dL (0.2-1); TOT PROT 6.8 g/dl (6.4-8.2)
[2020-09-25 21:20] LABS: ALBUMIN 3.3 g/dl (3.4-5.0)
[2020-09-25] MEDS ORDERED: MIDAZOLAM HCL 5 MG/1 ML Single Dose Vial IVPUSH ONE (23:03)
[2020-09-25] MEDS ORDERED: MIDAZOLAM HCL 2 MG/2 ML SINGLE DOSE VIAL ONE (23:05)
[2020-09-25] MEDS ORDERED: MIDAZOLAM HCL 2 MG/2 ML SINGLE DOSE VIAL IVPUSH ONE (23:05)
[2020-09-26] MEDS ORDERED: DEXTROSE 5%-0.45% SALINE 1,000 ML IV SCH (02:00)
[2020-09-26] MEDS ORDERED: LORazepam 2 MG/ML SDV VIAL IVPUSH ONE (06:19)
[2020-09-26] MEDS ORDERED: ALBUTEROL SO4 2.5/IPRATROPIUM 0.5 INH SOL 3 ML VIAL.NEB. NEB PRN (08:15)
[2020-09-26] MEDS ORDERED: TAMSULOSIN HCL 0.4 MG CAP PO SCH (08:30)
[2020-09-26] MEDS ORDERED: PANTOPRAZOLE SODIUM 40 MG VIAL IVPUSH SCH (10:00)
[2020-09-26] MEDS ORDERED: risperiDONE 1 MG TABLET PO SCH (10:00)
[2020-09-26] MEDS ORDERED: risperiDONE 2 MG TABLET PO SCH (10:00)
[2020-09-26 12:49] LABS: BASO % 0.3 % (0-2.0); EOS % 0.7 % (0-4.5); HEMATOCRIT 29.7 % (35.4-49); HEMOGLOBIN 9.7 GM/dL (11.7-16.9); LYMPH % 10.6 % (8-40); MCH 28.8 pg (25.7-33.7); MCHC 32.6 g/dl (32.0-35.9); MEAN CELL VOLUME 88.4 fl (80-96); MEAN PLT VOLUME 9.8 fl (7.5-11.1); MONO % 6.1 % (3.8-10.2); NEUT % 82.3 % (42.8-82.8); PLATELET COUNT 157 K/MM3 (134-434); RBC 3.37 M/mm3 (4.00-5.60)
[2020-09-26 13:04] LABS: CALCIUM 8.7 mg/dL (8.5-10.1)
[2020-09-26 13:06] LABS: ALBUMIN 2.7 g/dl (3.4-5.0); BLOOD UREA NITROGEN 26.1 mg/dL (7-18)
[2020-09-26 13:08] LABS: CREATININE 1.5 mg/dL (0.55-1.3)
[2020-09-26 13:11] LABS: BILIRUBIN,TOTAL 0.5 mg/dL (0.2-1); TOT PROT 5.6 g/dl (6.4-8.2)
[2020-09-26 13:15] VITALS: BP 93/57; PULSE 52; TEMP 97.6
[2020-09-26] MEDS ORDERED: ATORVASTATIN CA 20 MG TABLET (FP) PO SCH (22:00)
[2020-09-26] MEDS ORDERED: MIRTAZAPINE 30 MG TABLET PO SCH (22:00)
== END 2020-09-26 18:12 | DRG 370 ==
LOC: JER 18:49 → JERBED 09-26 00:42 → J7W 09-26 09:47
PROVIDERS: ADMIT Internal Medicine; ATTEND Internal Medicine
DX: K20.91 Esophagitis, unspecified with bleeding (principal); F20.9 Schizophrenia, unspecified; J44.9 Chronic obstructive pulmonary disease, unspecified; K21.9 Gastro-esophageal reflux disease without esophagitis; I44.0 Atrioventricular block, first degree; F31.9 Bipolar disorder, unspecified; K44.9 Diaphragmatic hernia without obstruction or gangrene; R11.2 Nausea with vomiting, unspecified; F03.90 Unspecified dementia, unspecified severity, without behavioral disturbance, psychotic disturbance, mood disturbance, and anxiety; Z20.822 Contact with and (suspected) exposure to COVID-19; N18.9 Chronic kidney disease, unspecified
CPT/HCPCS: 36415; 71045-TC-FY; 74177-TC; 80053; 82272; 82550; 83690; 83735; 84484; 85025; 85610; 85730; 86850; 86900; 86901; 93005; 93010; 99285-25; C9803; U0003; U0005

== ENCOUNTER 2021-01-22 09:50 | Day surgery (SDC) | payer OTHER ==
[2021-01-18 14:35] VITALS: BMI 19.7
[2021-01-22 11:37] VITALS: TEMP 97.9
[2021-01-22 12:01] VITALS: BP 105/65; PULSE 78
== END 2021-01-22 12:00 ==
LOC: FASU-ENDO 09:50
PROVIDERS: ATTEND Internal Medicine Gastroenterology
PROC: 0DB68ZX Excision of Stomach, Via Natural or Artificial Opening Endoscopic, Diagnostic (ICD-10-PCS; 2021-01-22)
PROC: 0DB48ZX Excision of Esophagogastric Junction, Via Natural or Artificial Opening Endoscopic, Diagnostic (ICD-10-PCS; 2021-01-22)
PROC: 0DB98ZX Excision of Duodenum, Via Natural or Artificial Opening Endoscopic, Diagnostic (ICD-10-PCS; principal; 2021-01-22 10:57)
DX: K29.50 Unspecified chronic gastritis without bleeding (principal); K20.90 Esophagitis, unspecified without bleeding; K44.9 Diaphragmatic hernia without obstruction or gangrene; R13.10 Dysphagia, unspecified
CPT/HCPCS: 88305-TC; 88342-TC

== ENCOUNTER 2021-05-15 12:13 | Emergency (ER) | payer OTHER ==
[2021-05-15 12:45] VITALS: TEMP 97.6; BMI 21.1
[2021-05-15 14:29] LABS: BASO % 0.5 % (0-2.0); EOS % 2.1 % (0-4.5); HEMATOCRIT 22.8 % (35.4-49); HEMOGLOBIN 7.1 GM/dL (11.7-16.9); LYMPH % 10.8 % (8-40); MCH 21.7 pg (25.7-33.7); MCHC 31.1 g/dl (32.0-35.9); MEAN CELL VOLUME 69.8 fl (80-96); MEAN PLT VOLUME 8.7 fl (7.5-11.1); MONO % 15.1 % (3.8-10.2); NEUT % 71.5 % (42.8-82.8); PLATELET COUNT 207 10^3/uL (134-434); RBC 3.27 M/mm3 (4.00-5.60); WHITE BLOOD COUNT 4.7 K/mm3 (4.0-10.0)
[2021-05-15 14:36] LABS: INR 0.96 (0.83-1.09); PROTHROMBIN TIME (PATIENT) 10.8 SEC (9.7-13.0)
[2021-05-15 14:39] LABS: ACTIVATED PTT 25.1 SECONDS (25.2-36.5)
[2021-05-15 14:50] LABS: RETICULOCYTES 1.79 % (0.5-1.5)
[2021-05-15 14:52] LABS: ANISOCYTOSIS 2+; MACROCYTOSIS 0; OVALOCYTE 2+; PLATELET ESTIMATE NORMAL; SICKELED CELLS 1+
[2021-05-15 15:22] LABS: ALBUMIN 3.5 g/dl (3.4-5.0); BLOOD UREA NITROGEN 53.1 mg/dL (7-18)
[2021-05-15 15:25] LABS: CREATININE 2.2 mg/dL (0.55-1.3)
[2021-05-15 15:27] LABS: BILIRUBIN,TOTAL 0.3 mg/dL (0.2-1); TOT PROT 7.3 g/dl (6.4-8.2)
[2021-05-15 20:17] VITALS: BP 107/50; PULSE 111
== END 2021-05-15 20:17 ==
LOC: JER 12:13 → UNDOADMIN 12:36 → JERBED 12:36 → JER 20:17
DX: D64.9 Anemia, unspecified (principal)
CPT/HCPCS: 36415; 36430; 80053; 82272; 82728; 83540; 83550; 85025; 85045; 85610; 85730; 86850; 86900; 86901; 86922; 93005; 93010; 99283-25; C9803; P9058; U0003; U0005

== ENCOUNTER 2021-05-22 03:03 | Inpatient (IN) | payer OTHER ==
[2021-05-22 03:26] VITALS: BMI 21.9
[2021-05-22] MEDS ORDERED: PANTOPRAZOLE SODIUM 40 MG VIAL IVPUSH ONE (03:36)
[2021-05-22] MEDS ORDERED: PANTOPRAZOLE SODIUM 40 MG/100 ML BAG IVPB ONE (04:17)
[2021-05-22 04:25] LABS: BASO % 0.3 % (0-2.0); EOS % 1.1 % (0-4.5); HEMATOCRIT 23.9 % (35.4-49); HEMOGLOBIN 7.4 GM/dL (11.7-16.9); LYMPH % 12.4 % (8-40); MCH 22.1 pg (25.7-33.7); MCHC 30.9 g/dl (32.0-35.9); MEAN CELL VOLUME 71.5 fl (80-96); MEAN PLT VOLUME 7.8 fl (7.5-11.1); MONO % 9.7 % (3.8-10.2); NEUT % 76.5 % (42.8-82.8); PLATELET COUNT 193 10^3/uL (134-434); RBC 3.34 M/mm3 (4.00-5.60); RDW 18.5 % (11.9-15.9); WHITE BLOOD COUNT 7.4 K/mm3 (4.0-10.0)
[2021-05-22 04:39] LABS: CHLORIDE 110 mmol/L (98-107); SODIUM 143 mmol/L (136-145)
[2021-05-22 04:40] LABS: PROTHROMBIN TIME (PATIENT) 11.2 SEC (9.7-13.0)
[2021-05-22 04:41] LABS: CALCIUM 8.4 mg/dL (8.5-10.1)
[2021-05-22 04:42] LABS: ANION GAP 5 MMOL/L (8-16); CO2 28 mmol/L (21-32); GLUCOSE,RANDOM 76 mg/dL (74-106); MAGNESIUM 2.2 mg/dL (1.8-2.4)
[2021-05-22 04:45] LABS: CREATININE 2.2 mg/dL (0.55-1.3); SGOT/AST 17 U/L (15-37); SGPT/ALT 12 U/L (13-61)
[2021-05-22 04:47] LABS: TOT PROT 6.8 g/dl (6.4-8.2)
[2021-05-22 04:48] LABS: ALK PHOS 77 U/L (45-117)
[2021-05-22] MEDS ORDERED: HALOPERIDOL LACTATE 5 MG/ML IM ONE ×2 (04:52→06:31)
[2021-05-22] MEDS ORDERED: HALOPERIDOL LACTATE 5 MG/ML ONE ×2 (04:53→06:33)
[2021-05-22 08:20] LABS: BILIRUBIN,TOTAL 0.2 mg/dL (0.2-1)
[2021-05-22] MEDS ORDERED: ALBUTEROL SO4 HFA INHALER IH PRN (10:01)
[2021-05-22] MEDS ORDERED: ALBUTEROL SO4 HFA INHALER IH SCH (14:00)
[2021-05-22] MEDS ORDERED: MIRTAZAPINE 30 MG TABLET PO SCH (22:00)
[2021-05-22] MEDS ORDERED: OLANZapine 10 MG TABLET PO SCH (22:00)
[2021-05-22] MEDS ORDERED: ATORVASTATIN CA 20 MG TABLET (FP) PO SCH (22:00)
[2021-05-22] MEDS ORDERED: MIRTAZAPINE 15 MG TABLET (FP) ONE (23:01)
[2021-05-22] MEDS ORDERED: ATORVASTATIN CA 20 MG TABLET (FP) ONE (23:01)
[2021-05-22] MEDS ORDERED: OLANZapine 10 MG TABLET ONE (23:01)
[2021-05-22] MEDS ORDERED: BACITRACIN 0.9 GM PACKET ONE (23:01)
[2021-05-22] MEDS: BACITRACIN 15 GM TUBE TOPICAL OINTMENT TP SCH (23:09)
[2021-05-23] MEDS ORDERED: LORazepam 2 MG/ML SDV VIAL IVPUSH ONE (06:36)
[2021-05-23] MEDS ORDERED: LORazepam 2 MG/ML SDV VIAL ONE (06:42)
[2021-05-23 08:29] LABS: HEMATOCRIT 26.2 % (35.4-49); HEMOGLOBIN 8.1 GM/dL (11.7-16.9); MCH 22.5 pg (25.7-33.7); MEAN CELL VOLUME 72.7 fl (80-96); MEAN PLT VOLUME 8.3 fl (7.5-11.1); PLATELET COUNT 214 10^3/uL (134-434); RBC 3.61 M/mm3 (4.00-5.60); RDW 18.7 % (11.9-15.9); WHITE BLOOD COUNT 8.7 K/mm3 (4.0-10.0)
[2021-05-23] MEDS ORDERED: TAMSULOSIN HCL 0.4 MG CAP PO SCH (08:30)
[2021-05-23] MEDS ORDERED: TAMSULOSIN HCL 0.4 MG CAP ONE (08:39)
[2021-05-23 08:46] LABS: CALCIUM 8.5 mg/dL (8.5-10.1)
[2021-05-23] MEDS ORDERED: PANTOPRAZOLE SODIUM 40 MG VIAL IVPUSH SCH (10:00)
[2021-05-23] MEDS: BACITRACIN 15 GM TUBE TOPICAL OINTMENT TP SCH (10:59)
[2021-05-23] MEDS ORDERED: PANTOPRAZOLE SODIUM 40 MG VIAL ONE (11:00)
[2021-05-23] MEDS ORDERED: BACITRACIN 0.9 GM PACKET ONE (11:01)
[2021-05-23] MEDS ORDERED: HALOPERIDOL LACTATE 5 MG/ML ONE (16:49)
[2021-05-23] MEDS ORDERED: HALOPERIDOL LACTATE 5 MG/ML IM ONE (18:04)
[2021-05-23 20:41] VITALS: BP 135/88; PULSE 88; TEMP 97.8
== END 2021-05-23 21:00 | disposition home or self-care (01) | DRG 379 ==
LOC: JER 03:03 → JERBED 05:22 → OBSVTOIN 10:05
PROVIDERS: ADMIT Internal Medicine; ATTEND Internal Medicine
DX: K92.0 Hematemesis (principal); F03.90 Unspecified dementia, unspecified severity, without behavioral disturbance, psychotic disturbance, mood disturbance, and anxiety; F20.9 Schizophrenia, unspecified; D64.9 Anemia, unspecified; J44.9 Chronic obstructive pulmonary disease, unspecified; F31.9 Bipolar disorder, unspecified; K44.9 Diaphragmatic hernia without obstruction or gangrene; N18.9 Chronic kidney disease, unspecified
CPT/HCPCS: 36415; 71045-TC-FY; 74181-TC; 80048; 80053; 82550; 82553; 83605; 83735; 84443; 84484; 85025; 85027; 85610; 85730; 86850; 86900; 86901; 93005; 93010; 99285-25; C9803; G0378; U0003; U0005

== ENCOUNTER 2021-08-07 09:02 | Inpatient (IN) | payer OTHER ==
[2021-08-07] MEDS ORDERED: PANTOPRAZOLE SODIUM 40 MG VIAL IVPUSH ONE (09:28)
[2021-08-07 10:29] LABS: BASO % 0.2 % (0-2.0); EOS % 0.2 % (0-4.5); HEMATOCRIT 37.9 % (35.4-49); HEMOGLOBIN 12.4 GM/dL (11.7-16.9); LYMPH % 8.4 % (8-40); MCH 26.4 pg (25.7-33.7); MCHC 32.6 g/dl (32.0-35.9); MEAN PLT VOLUME 8.6 fl (7.5-11.1); MONO % 6.7 % (3.8-10.2); NEUT % 84.5 % (42.8-82.8); PLATELET COUNT 158 10^3/uL (134-434); RBC 4.68 M/mm3 (4.00-5.60); WHITE BLOOD COUNT 9.6 K/mm3 (4.0-10.0)
[2021-08-07] MEDS ORDERED: LACTATED RINGERS SOLUTION 1000 ML INFUS.BAG IV ONE ×2 (10:33→15:37)
[2021-08-07 10:35] LABS: INR 0.98 (0.83-1.09); PROTHROMBIN TIME (PATIENT) 11.3 SEC (9.7-13.0)
[2021-08-07 10:37] LABS: CALCIUM 9.1 mg/dL (8.5-10.1); MAGNESIUM 2.2 mg/dL (1.8-2.4)
[2021-08-07 10:38] LABS: ALBUMIN 3.5 g/dl (3.4-5.0); BLOOD UREA NITROGEN 36.7 mg/dL (7-18)
[2021-08-07 10:40] LABS: CREATININE 1.7 mg/dL (0.55-1.3)
[2021-08-07] MEDS ORDERED: PANTOPRAZOLE SODIUM 40 MG VIAL ONE (10:40)
[2021-08-07 10:41] LABS: PHOSPHOROUS 3.1 mg/dL (2.5-4.9)
[2021-08-07 10:42] LABS: TOT PROT 7.1 g/dl (6.4-8.2)
[2021-08-07 10:43] LABS: BILIRUBIN,TOTAL 0.4 mg/dL (0.2-1)
[2021-08-07 10:50] LABS: SARS AG REFLEX COV19 SEND OUT negative (Negative)
[2021-08-07 12:00] LABS: VENOUS O2 SATURATION 47.3 % (70-80); VENOUS PCO2 51.9 mmHg (38-52); VENOUS PH 7.355 (7.310-7.410)
[2021-08-07 14:17] LABS: PH,URINE 7.5 (5.0-8.0); URINE APPEARANCE CLEAR; URINE BILIRUBIN NEGATIVE (NEGATIVE); URINE COLOR YELLOW; URINE GLUCOSE (UA) NEGATIVE (NEGATIVE); URINE KETONE NEGATIVE (NEGATIVE); URINE LEUK ESTERASE NEGATIVE (NEGATIVE); URINE NITRITE NEGATIVE (NEGATIVE); URINE PROTEIN NEGATIVE (NEGATIVE); URINE UROBILINOGEN 0.2 mg/dL (0.2-1.0)
[2021-08-07] MEDS ORDERED: ALBUTEROL SO4 HFA INHALER IH PRN (16:57)
[2021-08-07] MEDS ORDERED: ACETAMINOPHEN 325 MG TABLET (FP) PO PRN (16:57)
[2021-08-07] MEDS ORDERED: MINERAL OIL ENEMA 133 ML ENEMA PR ONE (17:01)
[2021-08-07] MEDS ORDERED: POLYETHYLENE GLYCOL (HEALTHYLAX) 3350 17 GM PACKET ONE (17:32)
[2021-08-07] MEDS: POLYETHYLENE GLYCOL 3350 119 GM BTL PO SCH (19:29)
[2021-08-07] MEDS ORDERED: risperiDONE 2 MG TABLET PO SCH (22:00)
[2021-08-07] MEDS ORDERED: SENNOSIDES 8.6MG TABLET (FP) PO SCH (22:00)
[2021-08-08] MEDS: MIRTAZAPINE 30 MG TABLET PO SCH ×3 (00:03→22:36)
[2021-08-08] MEDS: SENNOSIDES 8.8 MG/5 ML BULK BOTTLE PO SCH ×3 (00:03→22:37)
[2021-08-08] MEDS: PANTOPRAZOLE SODIUM 40 MG VIAL IVPUSH SCH ×5 (00:03→22:28)
[2021-08-08] MEDS: ATORVASTATIN CA 10 MG TABLET (FP) PO SCH ×3 (00:03→22:36)
[2021-08-08 09:20] LABS: BASO % 0.4 % (0-2.0); EOS % 0.7 % (0-4.5); HEMATOCRIT 34.2 % (35.4-49); HEMOGLOBIN 11.3 GM/dL (11.7-16.9); LYMPH % 14.4 % (8-40); MCH 26.9 pg (25.7-33.7); MEAN CELL VOLUME 81.4 fl (80-96); MEAN PLT VOLUME 8.4 fl (7.5-11.1); MONO % 3.9 % (3.8-10.2); NEUT % 80.6 % (42.8-82.8); PLATELET COUNT 145 10^3/uL (134-434); RDW 20.9 % (11.9-15.9); WHITE BLOOD COUNT 5.6 K/mm3 (4.0-10.0)
[2021-08-08] MEDS: OLANZapine 10 MG TABLET PO SCH (09:22)
[2021-08-08] MEDS: TAMSULOSIN HCL 0.4 MG CAP PO SCH (09:23)
[2021-08-08] MEDS: POLYETHYLENE GLYCOL 3350 119 GM BTL PO SCH (09:32)
[2021-08-08 09:56] LABS: ALBUMIN 3.1 g/dl (3.4-5.0); BLOOD UREA NITROGEN 27.5 mg/dL (7-18)
[2021-08-08 09:59] LABS: CREATININE 1.7 mg/dL (0.55-1.3)
[2021-08-08 10:00] LABS: BILIRUBIN,TOTAL 0.9 mg/dL (0.2-1); TOT PROT 6.5 g/dl (6.4-8.2)
[2021-08-08] MEDS ORDERED: PATIENT'S OWN MEDICATION (NON-FORMULARY) (Olanzapine [Zyprexa] 10 MG Tablet) PO SCH (10:00)
[2021-08-08] MEDS ORDERED: MAGNESIUM CITRATE 300 ML BOTTLE PO ONE (11:48)
[2021-08-08] MEDS ORDERED: BISACODYL 5 MG TABLET.DR (FP) PO PRN (11:48)
[2021-08-08 15:07] LABS: SARS-CoV-2 NAA Not Detected (Not Detected)
[2021-08-08] MEDS: risperiDONE 1 MG TABLET PO SCH ×2 (21:50→22:36)
[2021-08-09 09:37] LABS: HEMATOCRIT 33.5 % (35.4-49); MCH 26.6 pg (25.7-33.7); MCHC 32.9 g/dl (32.0-35.9); MEAN CELL VOLUME 80.9 fl (80-96); MEAN PLT VOLUME 8.5 fl (7.5-11.1); PLATELET COUNT 148 10^3/uL (134-434); RBC 4.14 M/mm3 (4.00-5.60); RDW 20.2 % (11.9-15.9); WHITE BLOOD COUNT 6.1 K/mm3 (4.0-10.0)
[2021-08-09] MEDS: OLANZapine 10 MG TABLET PO SCH (09:58)
[2021-08-09] MEDS: TAMSULOSIN HCL 0.4 MG CAP PO SCH (09:58)
[2021-08-09] MEDS: PANTOPRAZOLE SODIUM 40 MG VIAL IVPUSH SCH ×2 (09:58→22:12)
[2021-08-09] MEDS: POLYETHYLENE GLYCOL 3350 119 GM BTL PO SCH (10:26)
[2021-08-09 16:15] VITALS: BMI 19.7
[2021-08-09] MEDS: risperiDONE 1 MG TABLET PO SCH (22:11)
[2021-08-09] MEDS: MIRTAZAPINE 30 MG TABLET PO SCH (22:11)
[2021-08-09] MEDS: ATORVASTATIN CA 10 MG TABLET (FP) PO SCH (22:12)
[2021-08-09] MEDS: SENNOSIDES 8.8 MG/5 ML BULK BOTTLE PO SCH (22:17)
[2021-08-10 08:41] LABS: BASO % 0.5 % (0-2.0); EOS % 1.5 % (0-4.5); HEMATOCRIT 35.4 % (35.4-49); HEMOGLOBIN 11.3 GM/dL (11.7-16.9); LYMPH % 15.9 % (8-40); MCHC 31.9 g/dl (32.0-35.9); MEAN CELL VOLUME 81.5 fl (80-96); MEAN PLT VOLUME 8.7 fl (7.5-11.1); MONO % 6.4 % (3.8-10.2); NEUT % 75.7 % (42.8-82.8); PLATELET COUNT 154 10^3/uL (134-434); RBC 4.34 M/mm3 (4.00-5.60); RDW 19.9 % (11.9-15.9); WHITE BLOOD COUNT 6.5 K/mm3 (4.0-10.0)
[2021-08-10 09:06] LABS: CALCIUM 9.5 mg/dL (8.5-10.1)
[2021-08-10 09:07] LABS: ALBUMIN 3.2 g/dl (3.4-5.0); BLOOD UREA NITROGEN 25.7 mg/dL (7-18)
[2021-08-10 09:10] LABS: CREATININE 1.6 mg/dL (0.55-1.3)
[2021-08-10 09:12] LABS: BILIRUBIN,TOTAL 0.4 mg/dL (0.2-1); TOT PROT 6.5 g/dl (6.4-8.2)
[2021-08-10] MEDS: TAMSULOSIN HCL 0.4 MG CAP PO SCH (11:27)
[2021-08-10] MEDS: PANTOPRAZOLE SODIUM 40 MG VIAL IVPUSH SCH ×2 (11:27→21:57)
[2021-08-10] MEDS: POLYETHYLENE GLYCOL 3350 119 GM BTL PO SCH (11:28)
[2021-08-10] MEDS: OLANZapine 10 MG TABLET PO SCH (11:28)
[2021-08-10] MEDS ORDERED: MIRTAZAPINE 15 MG TABLET (FP) ONE (20:55)
[2021-08-10] MEDS: risperiDONE 1 MG TABLET PO SCH (21:55)
[2021-08-10] MEDS: MIRTAZAPINE 30 MG TABLET PO SCH (21:56)
[2021-08-10] MEDS: ATORVASTATIN CA 10 MG TABLET (FP) PO SCH (21:57)
[2021-08-10] MEDS: SENNOSIDES 8.8 MG/5 ML BULK BOTTLE PO SCH (21:57)
[2021-08-11] MEDS: PANTOPRAZOLE SODIUM 40 MG VIAL IVPUSH SCH (09:42)
[2021-08-11] MEDS: OLANZapine 10 MG TABLET PO SCH (11:30)
[2021-08-11] MEDS: TAMSULOSIN HCL 0.4 MG CAP PO SCH (11:30)
[2021-08-11] MEDS: POLYETHYLENE GLYCOL 3350 119 GM BTL PO SCH (11:31)
[2021-08-11 15:51] VITALS: BP 98/56; PULSE 60; TEMP 97.6
[2021-08-12] MEDS ORDERED: POLYETHYLENE GLYCOL (HEALTHYLAX) 3350 17 GM PACKET PO SCH (10:00)
== END 2021-08-11 18:02 | DRG 379 ==
LOC: JER 09:02 → JERBED 15:07 → J8W 22:13
PROVIDERS: ADMIT Internal Medicine; ATTEND Internal Medicine
PROC: 0DJ08ZZ Inspection of Upper Intestinal Tract, Via Natural or Artificial Opening Endoscopic (ICD-10-PCS; principal; 2021-08-10 11:45)
DX: K92.0 Hematemesis (principal); J44.9 Chronic obstructive pulmonary disease, unspecified; F25.0 Schizoaffective disorder, bipolar type; F03.90 Unspecified dementia, unspecified severity, without behavioral disturbance, psychotic disturbance, mood disturbance, and anxiety; D64.9 Anemia, unspecified; E78.00 Pure hypercholesterolemia, unspecified; R13.10 Dysphagia, unspecified; N40.0 Benign prostatic hyperplasia without lower urinary tract symptoms; R94.5 Abnormal results of liver function studies; N28.89 Other specified disorders of kidney and ureter; R33.9 Retention of urine, unspecified; K21.00 Gastro-esophageal reflux disease with esophagitis, without bleeding; K44.9 Diaphragmatic hernia without obstruction or gangrene
CPT/HCPCS: 36415; 71045-TC-FY; 74019-TC-FY; 74176-TC; 80053; 81003; 82272; 82550; 82803; 83605; 83690; 83735; 84100; 84484; 85025; 85027; 85610; 85730; 86850; 86900; 86901; 87086; 87426; 93005; 93010; 99285-25; C9803; J2794; U0003; U0005

== ENCOUNTER 2021-10-05 16:06 | Inpatient (IN) | payer OTHER ==
[2021-10-05] MEDS ORDERED: SODIUM CHLORIDE 1,000 ML IV SCH (17:30)
[2021-10-05] MEDS ORDERED: SODIUM CHLORIDE 0.9% 500 ML INFUS.BAG IV ONE (18:36)
[2021-10-05 18:41] LABS: BASO % 0.6 % (0-2.0); EOS % 0.2 % (0-4.5); HEMATOCRIT 45.2 % (35.4-49); HEMOGLOBIN 14.4 GM/dL (11.7-16.9); LYMPH % 9.5 % (8-40); MCH 26.8 pg (25.7-33.7); MCHC 31.8 g/dl (32.0-35.9); MEAN CELL VOLUME 84.3 fl (80-96); MEAN PLT VOLUME 10.5 fl (7.5-11.1); MONO % 5.2 % (3.8-10.2); NEUT % 84.5 % (42.8-82.8); PLATELET COUNT 208 10^3/uL (134-434); RBC 5.36 M/mm3 (4.00-5.60); RDW 17.4 % (11.9-15.9); WHITE BLOOD COUNT 8.1 K/mm3 (4.0-10.0)
[2021-10-05 18:45] LABS: INR 0.94 (0.83-1.09); PROTHROMBIN TIME (PATIENT) 10.8 SEC (9.7-13.0)
[2021-10-05 18:47] LABS: ACTIVATED PTT 33.3 SECONDS (25.2-36.5)
[2021-10-05 19:00] LABS: ALBUMIN 2.6 g/dl (3.4-5.0); BLOOD UREA NITROGEN 40.6 mg/dL (7-18); CALCIUM 9.4 mg/dL (8.5-10.1); MAGNESIUM 2.4 mg/dL (1.8-2.4)
[2021-10-05 19:03] LABS: CREATININE 1.4 mg/dL (0.55-1.3); PHOSPHOROUS 3.4 mg/dL (2.5-4.9)
[2021-10-05 19:05] LABS: BILIRUBIN,TOTAL 0.5 mg/dL (0.2-1); TOT PROT 6.8 g/dl (6.4-8.2)
[2021-10-05 21:46] LABS: BLOOD UREA NITROGEN 42.3 mg/dL (7-18); CALCIUM 9.1 mg/dL (8.5-10.1)
[2021-10-05 21:47] LABS: ALBUMIN 2.6 g/dl (3.4-5.0)
[2021-10-05 21:50] LABS: CREATININE 1.3 mg/dL (0.55-1.3)
[2021-10-05 21:51] LABS: BILIRUBIN,TOTAL 0.6 mg/dL (0.2-1)
[2021-10-05 21:52] LABS: TOT PROT 6.3 g/dl (6.4-8.2)
[2021-10-06] MEDS ORDERED: LACTATED RINGERS SOLUTION 1000 ML INFUS.BAG IV ONE (01:26)
[2021-10-06] MEDS ORDERED: POLYETHYLENE GLYCOL (HEALTHYLAX) 3350 17 GM PACKET PO PRN (04:06)
[2021-10-06] MEDS ORDERED: SENNOSIDES 8.6MG TABLET (FP) PO PRN (04:06)
[2021-10-06] MEDS ORDERED: ALBUTEROL SO4 HFA INHALER IH PRN (04:06)
[2021-10-06] MEDS ORDERED: PANTOPRAZOLE 40 MG TABLET PO SCH (04:15)
[2021-10-06] MEDS ORDERED: MINERAL OIL ENEMA 133 ML ENEMA RC ONE (05:16)
[2021-10-06] MEDS: DEXTROSE 5%-0.45% SALINE 1,000 ML IV SCH ×2 (05:45→15:45)
[2021-10-06 11:03] LABS: CALCIUM 8.8 mg/dL (8.5-10.1)
[2021-10-06 11:04] LABS: BLOOD UREA NITROGEN 37.7 mg/dL (7-18)
[2021-10-06 11:07] LABS: CREATININE 1.1 mg/dL (0.55-1.3)
[2021-10-06] MEDS ORDERED: PIPERACILLIN/TAZOB 2.25 GM 2.25 GM in DEXTROSE 5%-WATER - 50 ML IVPB SCH ×2 (11:30→18:00)
[2021-10-06] MEDS ORDERED: PIPERACILLIN/TAZOBACTAM 2.25 GM VIAL IVPB ONE (11:35)
[2021-10-06] MEDS ORDERED: DEXTROSE 5%-WATER - 50 ML IVPB ONE ×2 (11:36→17:32)
[2021-10-06] MEDS: PANTOPRAZOLE 40 MG TABLET PO SCH (12:14)
[2021-10-06 13:42] LABS: BASO % 0.3 % (0-2.0); EOS % 0.3 % (0-4.5); HEMATOCRIT 37.8 % (35.4-49); HEMOGLOBIN 12.3 GM/dL (11.7-16.9); LYMPH % 9.9 % (8-40); MCH 27.2 pg (25.7-33.7); MCHC 32.6 g/dl (32.0-35.9); MEAN CELL VOLUME 83.6 fl (80-96); MEAN PLT VOLUME 9.9 fl (7.5-11.1); MONO % 6.4 % (3.8-10.2); NEUT % 83.1 % (42.8-82.8); PLATELET COUNT 157 10^3/uL (134-434); RBC 4.52 M/mm3 (4.00-5.60); RDW 16.8 % (11.9-15.9); WHITE BLOOD COUNT 7.2 K/mm3 (4.0-10.0)
[2021-10-06 13:58] LABS: URINE APPEARANCE CLEAR; URINE BILIRUBIN NEGATIVE (NEGATIVE); URINE COLOR YELLOW; URINE GLUCOSE (UA) NEGATIVE (NEGATIVE); URINE KETONE TRACE (NEGATIVE); URINE LEUK ESTERASE NEGATIVE (NEGATIVE); URINE NITRITE NEGATIVE (NEGATIVE); URINE PROTEIN NEGATIVE (NEGATIVE)
[2021-10-06] MEDS: HEPARIN NA (PORCINE) 5,000 UNITS/ML 1ML VIAL SQ SCH ×2 (14:02→21:26)
[2021-10-06 16:45] LABS: CALCIUM 8.5 mg/dL (8.5-10.1)
[2021-10-06 16:48] LABS: CREATININE 1.1 mg/dL (0.55-1.3)
[2021-10-06] MEDS ORDERED: PIPERACILLIN/TAZOBACTAM 3.375 GM VIAL IVPB ONE (17:31)
[2021-10-06] MEDS: PIPERACILLIN/TAZOB 3.375 GM 3.375 GM in DEXTROSE 5%-WATER - 50 ML IVPB SCH (17:41)
[2021-10-06] MEDS: TAMSULOSIN HCL 0.4 MG CAP PO SCH (17:41)
[2021-10-06] MEDS: POLYETHYLENE GLYCOL (HEALTHYLAX) 3350 17 GM PACKET PO SCH (21:26)
[2021-10-06] MEDS: risperiDONE 1 MG TABLET PO SCH (21:32)
[2021-10-06] MEDS: MIRTAZAPINE 15 MG TABLET (FP) PO SCH (21:32)
[2021-10-06] MEDS: ATORVASTATIN CA 20 MG TABLET (FP) PO SCH (21:32)
[2021-10-06] MEDS ORDERED: OLANZapine 10 MG TABLET PO SCH (22:00)
[2021-10-07] MEDS: POLYETHYLENE GLYCOL (HEALTHYLAX) 3350 17 GM PACKET PO SCH ×3 (01:30→22:32)
[2021-10-07] MEDS ORDERED: PIPERACILLIN/TAZOBACTAM 3.375 GM VIAL IVPB ONE ×3 (02:00→18:00)
[2021-10-07] MEDS ORDERED: DEXTROSE 5%-WATER - 50 ML IVPB ONE ×3 (02:01→18:00)
[2021-10-07] MEDS: PIPERACILLIN/TAZOB 3.375 GM 3.375 GM in DEXTROSE 5%-WATER - 50 ML IVPB SCH ×3 (02:20→18:02)
[2021-10-07] MEDS: HEPARIN NA (PORCINE) 5,000 UNITS/ML 1ML VIAL SQ SCH ×3 (05:24→22:32)
[2021-10-07] MEDS: DEXTROSE 5%-0.45% SALINE 1,000 ML IV SCH (05:25)
[2021-10-07 09:16] LABS: BASO % 0.4 % (0-2.0); EOS % 0.4 % (0-4.5); HEMATOCRIT 33.4 % (35.4-49); HEMOGLOBIN 10.9 GM/dL (11.7-16.9); LYMPH % 12.9 % (8-40); MCH 27.1 pg (25.7-33.7); MCHC 32.7 g/dl (32.0-35.9); MEAN PLT VOLUME 9.9 fl (7.5-11.1); MONO % 6.3 % (3.8-10.2); PLATELET COUNT 153 10^3/uL (134-434); RBC 4.03 M/mm3 (4.00-5.60); RDW 17.2 % (11.9-15.9); WHITE BLOOD COUNT 5.1 K/mm3 (4.0-10.0)
[2021-10-07 09:51] LABS: BLOOD UREA NITROGEN 27.9 mg/dL (7-18); CALCIUM 8.8 mg/dL (8.5-10.1)
[2021-10-07 09:55] LABS: CREATININE 1.2 mg/dL (0.55-1.3)
[2021-10-07] MEDS: PANTOPRAZOLE 40 MG TABLET PO SCH (10:06)
[2021-10-07] MEDS ORDERED: OLANZapine 5 MG TABLET PO ONE (12:09)
[2021-10-07] MEDS ORDERED: PIPERACILLIN/TAZOB 2.25 GM 2.25 GM in DEXTROSE 5%-WATER - 50 ML IVPB SCH (15:00)
[2021-10-07] MEDS: TAMSULOSIN HCL 0.4 MG CAP PO SCH (18:02)
[2021-10-07] MEDS: ATORVASTATIN CA 20 MG TABLET (FP) PO SCH (22:32)
[2021-10-07] MEDS: MIRTAZAPINE 15 MG TABLET (FP) PO SCH (22:32)
[2021-10-07] MEDS: risperiDONE 1 MG TABLET PO SCH (22:32)
[2021-10-08] MEDS ORDERED: DEXTROSE 5%-WATER - 50 ML IVPB ONE ×3 (02:40→17:11)
[2021-10-08] MEDS ORDERED: PIPERACILLIN/TAZOBACTAM 3.375 GM VIAL IVPB ONE ×3 (02:40→17:10)
[2021-10-08] MEDS: PIPERACILLIN/TAZOB 3.375 GM 3.375 GM in DEXTROSE 5%-WATER - 50 ML IVPB SCH ×3 (02:46→17:26)
[2021-10-08] MEDS: HEPARIN NA (PORCINE) 5,000 UNITS/ML 1ML VIAL SQ SCH ×3 (06:50→21:32)
[2021-10-08] MEDS ORDERED: POTASSIUM CHLORIDE ORAL LIQUID 20 MEQ/15 ML PO ONE (09:59)
[2021-10-08] MEDS: OLANZapine 5 MG TABLET PO SCH (10:29)
[2021-10-08] MEDS: DEXTROSE 5%-0.45% SALINE 1,000 ML IV SCH (10:41)
[2021-10-08] MEDS: POLYETHYLENE GLYCOL (HEALTHYLAX) 3350 17 GM PACKET PO SCH ×2 (11:00→21:33)
[2021-10-08] MEDS: PANTOPRAZOLE 40 MG TABLET PO SCH (11:01)
[2021-10-08] MEDS: ACETAMINOPHEN 325 MG TABLET (FP) PO PRN (12:55)
[2021-10-08] MEDS: TAMSULOSIN HCL 0.4 MG CAP PO SCH (17:26)
[2021-10-08] MEDS: MIRTAZAPINE 15 MG TABLET (FP) PO SCH ×2 (21:32→21:48)
[2021-10-08] MEDS: ATORVASTATIN CA 20 MG TABLET (FP) PO SCH ×2 (21:32→21:47)
[2021-10-08] MEDS: risperiDONE 1 MG TABLET PO SCH ×2 (21:32→21:48)
[2021-10-08] MEDS ORDERED: ONDANSETRON 4 MG/2 ML VIAL IVPUSH ONE (23:50)
[2021-10-09] MEDS ORDERED: PIPERACILLIN/TAZOBACTAM 3.375 GM VIAL IVPB ONE ×4 (02:57→17:19)
[2021-10-09] MEDS ORDERED: DEXTROSE 5%-WATER - 0 ML IVPB ONE (02:57)
[2021-10-09] MEDS: PIPERACILLIN/TAZOB 3.375 GM 3.375 GM in DEXTROSE 5%-WATER - 50 ML IVPB SCH ×3 (02:59→17:26)
[2021-10-09] MEDS: DEXTROSE 5%-0.45% SALINE 1,000 ML IV SCH (03:17)
[2021-10-09] MEDS: HEPARIN NA (PORCINE) 5,000 UNITS/ML 1ML VIAL SQ SCH ×3 (05:44→21:09)
[2021-10-09] MEDS ORDERED: DEXTROSE 5%-WATER - 50 ML IVPB ONE ×3 (09:41→17:19)
[2021-10-09] MEDS: OLANZapine 5 MG TABLET PO SCH (09:46)
[2021-10-09] MEDS: POLYETHYLENE GLYCOL (HEALTHYLAX) 3350 17 GM PACKET PO SCH ×2 (09:46→21:09)
[2021-10-09] MEDS: FAMOTIDINE 20 MG TABLET PO SCH (09:46)
[2021-10-09 09:49] LABS: BASO % 0.4 % (0-2.0); EOS % 0.4 % (0-4.5); HEMATOCRIT 30.4 % (35.4-49); LYMPH % 13.8 % (8-40); MCH 27.3 pg (25.7-33.7); MCHC 32.9 g/dl (32.0-35.9); MEAN CELL VOLUME 82.9 fl (80-96); MEAN PLT VOLUME 10.5 fl (7.5-11.1); MONO % 7.2 % (3.8-10.2); NEUT % 78.2 % (42.8-82.8); PLATELET COUNT 139 10^3/uL (134-434); RBC 3.67 M/mm3 (4.00-5.60); RDW 16.8 % (11.9-15.9); WHITE BLOOD COUNT 5.3 K/mm3 (4.0-10.0)
[2021-10-09 10:12] LABS: ALBUMIN 2.2 g/dl (3.4-5.0); BLOOD UREA NITROGEN 21.1 mg/dL (7-18)
[2021-10-09 10:15] LABS: CREATININE 1.3 mg/dL (0.55-1.3)
[2021-10-09 10:16] LABS: BILIRUBIN,TOTAL 0.3 mg/dL (0.2-1)
[2021-10-09] MEDS: D5-1/2NS+20 MEQ KCL - 20 MEQ/1,000 ML INFUS.BAG IV SCH (11:37)
[2021-10-09] MEDS: TAMSULOSIN HCL 0.4 MG CAP PO SCH (17:26)
[2021-10-09] MEDS: ATORVASTATIN CA 20 MG TABLET (FP) PO SCH (21:09)
[2021-10-09] MEDS: MIRTAZAPINE 15 MG TABLET (FP) PO SCH (21:09)
[2021-10-09] MEDS: risperiDONE 1 MG TABLET PO SCH (21:09)
[2021-10-10] MEDS: D5-1/2NS+20 MEQ KCL - 20 MEQ/1,000 ML INFUS.BAG IV SCH ×4 (00:12→13:13)
[2021-10-10] MEDS ORDERED: DEXTROSE 5%-WATER - 50 ML IVPB ONE ×3 (01:29→17:07)
[2021-10-10] MEDS ORDERED: PIPERACILLIN/TAZOBACTAM 3.375 GM VIAL IVPB ONE ×3 (01:29→17:07)
[2021-10-10] MEDS: PIPERACILLIN/TAZOB 3.375 GM 3.375 GM in DEXTROSE 5%-WATER - 50 ML IVPB SCH ×3 (01:32→17:12)
[2021-10-10] MEDS: HEPARIN NA (PORCINE) 5,000 UNITS/ML 1ML VIAL SQ SCH ×3 (06:23→21:21)
[2021-10-10 08:52] LABS: HEMOGLOBIN 10.3 GM/dL (11.7-16.9); MCH 26.7 pg (25.7-33.7); MCHC 32.3 g/dl (32.0-35.9); MEAN CELL VOLUME 82.6 fl (80-96); MEAN PLT VOLUME 9.8 fl (7.5-11.1); PLATELET COUNT 129 10^3/uL (134-434); RBC 3.87 M/mm3 (4.00-5.60); RDW 16.9 % (11.9-15.9); WHITE BLOOD COUNT 3.9 K/mm3 (4.0-10.0)
[2021-10-10] MEDS: FAMOTIDINE 20 MG TABLET PO SCH (09:01)
[2021-10-10] MEDS: ACETAMINOPHEN 325 MG TABLET (FP) PO PRN (09:01)
[2021-10-10] MEDS: POLYETHYLENE GLYCOL (HEALTHYLAX) 3350 17 GM PACKET PO SCH ×2 (09:01→21:21)
[2021-10-10] MEDS: OLANZapine 5 MG TABLET PO SCH (09:02)
[2021-10-10 09:13] LABS: CALCIUM 8.3 mg/dL (8.5-10.1)
[2021-10-10 09:14] LABS: ALBUMIN 2.3 g/dl (3.4-5.0); BLOOD UREA NITROGEN 15.4 mg/dL (7-18)
[2021-10-10 09:17] LABS: CREATININE 1.3 mg/dL (0.55-1.3)
[2021-10-10 09:19] LABS: BILIRUBIN,TOTAL 0.3 mg/dL (0.2-1); TOT PROT 5.4 g/dl (6.4-8.2)
[2021-10-10 10:15] LABS: ANISOCYTOSIS 1+; PLATELET ESTIMATE DECREASED
[2021-10-10] MEDS ORDERED: MAG HYDROX/AL HYDROX/SIMETH 30 ML UNIT-DOSE CUP PO PRN (10:57)
[2021-10-10] MEDS: HALOPERIDOL LACTATE 5 MG/ML IM PRN (14:52)
[2021-10-10] MEDS: TAMSULOSIN HCL 0.4 MG CAP PO SCH (17:12)
[2021-10-10] MEDS: MIRTAZAPINE 15 MG TABLET (FP) PO SCH (21:20)
[2021-10-10] MEDS: ATORVASTATIN CA 20 MG TABLET (FP) PO SCH (21:21)
[2021-10-10] MEDS: risperiDONE 1 MG TABLET PO SCH (21:22)
[2021-10-11] MEDS ORDERED: PIPERACILLIN/TAZOBACTAM 3.375 GM VIAL IVPB ONE ×3 (00:10→17:42)
[2021-10-11] MEDS ORDERED: DEXTROSE 5%-WATER - 50 ML IVPB ONE ×3 (00:11→17:43)
[2021-10-11] MEDS: PIPERACILLIN/TAZOB 3.375 GM 3.375 GM in DEXTROSE 5%-WATER - 50 ML IVPB SCH ×3 (01:14→17:50)
[2021-10-11] MEDS: D5-1/2NS+20 MEQ KCL - 20 MEQ/1,000 ML INFUS.BAG IV SCH ×2 (01:14→11:13)
[2021-10-11] MEDS: HEPARIN NA (PORCINE) 5,000 UNITS/ML 1ML VIAL SQ SCH ×3 (06:05→21:18)
[2021-10-11] MEDS: POLYETHYLENE GLYCOL (HEALTHYLAX) 3350 17 GM PACKET PO SCH ×3 (10:04→21:57)
[2021-10-11] MEDS: FAMOTIDINE 20 MG TABLET PO SCH (10:10)
[2021-10-11] MEDS: OLANZapine 5 MG TABLET PO SCH (10:11)
[2021-10-11 13:27] VITALS: BMI 17.9
[2021-10-11] MEDS: TAMSULOSIN HCL 0.4 MG CAP PO SCH (17:25)
[2021-10-11] MEDS: ATORVASTATIN CA 20 MG TABLET (FP) PO SCH (21:18)
[2021-10-11] MEDS: MIRTAZAPINE 15 MG TABLET (FP) PO SCH (21:18)
[2021-10-11] MEDS: risperiDONE 1 MG TABLET PO SCH (21:20)
[2021-10-12] MEDS ORDERED: PIPERACILLIN/TAZOBACTAM 3.375 GM VIAL IVPB ONE ×3 (01:16→18:03)
[2021-10-12] MEDS ORDERED: DEXTROSE 5%-WATER - 50 ML IVPB ONE ×3 (01:16→18:04)
[2021-10-12] MEDS: PIPERACILLIN/TAZOB 3.375 GM 3.375 GM in DEXTROSE 5%-WATER - 50 ML IVPB SCH ×3 (01:24→18:05)
[2021-10-12] MEDS: HEPARIN NA (PORCINE) 5,000 UNITS/ML 1ML VIAL SQ SCH ×3 (06:04→21:49)
[2021-10-12 07:05] LABS: BASO % 0.5 % (0-2.0); EOS % 1.2 % (0-4.5); HEMATOCRIT 29.7 % (35.4-49); HEMOGLOBIN 9.4 GM/dL (11.7-16.9); LYMPH % 21.8 % (8-40); MCH 26.4 pg (25.7-33.7); MCHC 31.6 g/dl (32.0-35.9); MEAN CELL VOLUME 83.4 fl (80-96); MEAN PLT VOLUME 9.9 fl (7.5-11.1); MONO % 8.8 % (3.8-10.2); NEUT % 67.7 % (42.8-82.8); PLATELET COUNT 136 10^3/uL (134-434); RBC 3.56 M/mm3 (4.00-5.60); RDW 17.4 % (11.9-15.9); WHITE BLOOD COUNT 3.9 K/mm3 (4.0-10.0)
[2021-10-12 07:19] LABS: ALBUMIN 2.2 g/dl (3.4-5.0); BLOOD UREA NITROGEN 12.9 mg/dL (7-18); CALCIUM 8.3 mg/dL (8.5-10.1)
[2021-10-12 07:22] LABS: CREATININE 1.5 mg/dL (0.55-1.3)
[2021-10-12 07:24] LABS: BILIRUBIN,TOTAL 0.2 mg/dL (0.2-1)
[2021-10-12] MEDS: OLANZapine 5 MG TABLET PO SCH (09:32)
[2021-10-12] MEDS: MULTIVIT-MINERALS ORAL LIQUID PO SCH (09:32)
[2021-10-12] MEDS: POLYETHYLENE GLYCOL (HEALTHYLAX) 3350 17 GM PACKET PO SCH ×2 (09:32→21:49)
[2021-10-12] MEDS: FAMOTIDINE 20 MG TABLET PO SCH (09:32)
[2021-10-12] MEDS: D5-1/2NS+20 MEQ KCL - 20 MEQ/1,000 ML INFUS.BAG IV SCH (14:30)
[2021-10-12] MEDS: TAMSULOSIN HCL 0.4 MG CAP PO SCH (17:18)
[2021-10-12] MEDS: risperiDONE 1 MG TABLET PO SCH (21:49)
[2021-10-12] MEDS: ATORVASTATIN CA 20 MG TABLET (FP) PO SCH (21:49)
[2021-10-12] MEDS: MIRTAZAPINE 15 MG TABLET (FP) PO SCH (21:49)
[2021-10-13] MEDS ORDERED: DEXTROSE 5%-WATER - 50 ML IVPB ONE ×2 (00:56→10:07)
[2021-10-13] MEDS ORDERED: PIPERACILLIN/TAZOBACTAM 3.375 GM VIAL IVPB ONE ×2 (00:56→10:07)
[2021-10-13] MEDS: PIPERACILLIN/TAZOB 3.375 GM 3.375 GM in DEXTROSE 5%-WATER - 50 ML IVPB SCH ×2 (01:04→10:10)
[2021-10-13] MEDS: HEPARIN NA (PORCINE) 5,000 UNITS/ML 1ML VIAL SQ SCH ×2 (06:13→13:55)
[2021-10-13] MEDS: HALOPERIDOL LACTATE 5 MG/ML IM PRN (10:05)
[2021-10-13] MEDS: POLYETHYLENE GLYCOL (HEALTHYLAX) 3350 17 GM PACKET PO SCH ×2 (10:06→21:12)
[2021-10-13] MEDS: OLANZapine 5 MG TABLET PO SCH (10:06)
[2021-10-13] MEDS: FAMOTIDINE 20 MG TABLET PO SCH (10:06)
[2021-10-13] MEDS: MULTIVIT-MINERALS ORAL LIQUID PO SCH (10:06)
[2021-10-13] MEDS ORDERED: OLANZapine 5 MG TABLET PO SCH (11:00)
[2021-10-13] MEDS ORDERED: OLANZapine 5 MG TABLET PO ONE (11:06)
[2021-10-13] MEDS: LORazepam 2 MG/ML SDV VIAL IVPUSH PRN ×2 (12:43→22:53)
[2021-10-13] MEDS: DEXTROSE 5%-NORMAL SALINE 1,000 ML IV SCH (15:40)
[2021-10-13 17:38] LABS: BASO % 0.3 % (0-2.0); EOS % 0.3 % (0-4.5); HEMATOCRIT 29.5 % (35.4-49); HEMOGLOBIN 9.7 GM/dL (11.7-16.9); LYMPH % 10.2 % (8-40); MCH 27.4 pg (25.7-33.7); MCHC 32.9 g/dl (32.0-35.9); MEAN CELL VOLUME 83.3 fl (80-96); MEAN PLT VOLUME 9.4 fl (7.5-11.1); MONO % 8.1 % (3.8-10.2); NEUT % 81.1 % (42.8-82.8); PLATELET COUNT 134 10^3/uL (134-434); RBC 3.54 M/mm3 (4.00-5.60); RDW 17.4 % (11.9-15.9); WHITE BLOOD COUNT 5.9 K/mm3 (4.0-10.0)
[2021-10-13] MEDS: TAMSULOSIN HCL 0.4 MG CAP PO SCH (18:41)
[2021-10-13] MEDS: risperiDONE 1 MG TABLET PO SCH (21:11)
[2021-10-13] MEDS: MIRTAZAPINE 15 MG TABLET (FP) PO SCH (21:12)
[2021-10-13] MEDS: ATORVASTATIN CA 20 MG TABLET (FP) PO SCH (21:12)
[2021-10-13] MEDS: PANTOPRAZOLE SODIUM 40 MG VIAL IVPUSH SCH (21:12)
[2021-10-14] MEDS: LORazepam 2 MG/ML SDV VIAL IVPUSH PRN ×2 (06:18→21:59)
[2021-10-14] MEDS: DEXTROSE 5%-NORMAL SALINE 1,000 ML IV SCH ×2 (06:19→17:59)
[2021-10-14 08:53] LABS: BASO % 0.3 % (0-2.0); EOS % 0.4 % (0-4.5); HEMATOCRIT 24.9 % (35.4-49); HEMOGLOBIN 8.2 GM/dL (11.7-16.9); LYMPH % 16.6 % (8-40); MCH 27.2 pg (25.7-33.7); MCHC 32.9 g/dl (32.0-35.9); MEAN CELL VOLUME 82.6 fl (80-96); MEAN PLT VOLUME 9.5 fl (7.5-11.1); MONO % 7.3 % (3.8-10.2); NEUT % 75.4 % (42.8-82.8); PLATELET COUNT 133 10^3/uL (134-434); RBC 3.01 M/mm3 (4.00-5.60); RDW 17.8 % (11.9-15.9); WHITE BLOOD COUNT 3.9 K/mm3 (4.0-10.0)
[2021-10-14] MEDS: MULTIVIT-MINERALS ORAL LIQUID PO SCH (09:43)
[2021-10-14] MEDS: FAMOTIDINE 20 MG TABLET PO SCH (09:43)
[2021-10-14] MEDS: POLYETHYLENE GLYCOL (HEALTHYLAX) 3350 17 GM PACKET PO SCH ×2 (09:43→21:13)
[2021-10-14] MEDS: OLANZapine 10 MG TABLET PO SCH (09:44)
[2021-10-14] MEDS: PANTOPRAZOLE SODIUM 40 MG VIAL IVPUSH SCH ×2 (09:44→21:59)
[2021-10-14] MEDS ORDERED: SODIUM PHOSPHATE/NA BIPHOS 133 ML ENEMA PR ONE (10:54)
[2021-10-14] MEDS: TAMSULOSIN HCL 0.4 MG CAP PO SCH (17:35)
[2021-10-14] MEDS: MIRTAZAPINE 15 MG TABLET (FP) PO SCH (21:13)
[2021-10-14] MEDS: ATORVASTATIN CA 20 MG TABLET (FP) PO SCH (21:13)
[2021-10-14] MEDS: risperiDONE 1 MG TABLET PO SCH (21:13)
[2021-10-15] MEDS: DEXTROSE 5%-NORMAL SALINE 1,000 ML IV SCH ×3 (06:07→17:35)
[2021-10-15] MEDS: LORazepam 2 MG/ML SDV VIAL IVPUSH PRN ×3 (09:26→21:22)
[2021-10-15] MEDS: OLANZapine 10 MG TABLET PO SCH (09:26)
[2021-10-15] MEDS: POLYETHYLENE GLYCOL (HEALTHYLAX) 3350 17 GM PACKET PO SCH ×2 (09:26→21:16)
[2021-10-15] MEDS: FAMOTIDINE 20 MG TABLET PO SCH (09:26)
[2021-10-15] MEDS: MULTIVIT-MINERALS ORAL LIQUID PO SCH (09:26)
[2021-10-15] MEDS: PANTOPRAZOLE SODIUM 40 MG VIAL IVPUSH SCH (09:26)
[2021-10-15] MEDS: TAMSULOSIN HCL 0.4 MG CAP PO SCH (17:35)
[2021-10-15] MEDS: MIRTAZAPINE 15 MG TABLET (FP) PO SCH (21:15)
[2021-10-15] MEDS: GABAPENTIN 100 MG CAPSULE PO SCH (21:16)
[2021-10-15] MEDS: ATORVASTATIN CA 20 MG TABLET (FP) PO SCH (21:16)
[2021-10-15] MEDS: risperiDONE 1 MG TABLET PO SCH (21:16)
[2021-10-16] MEDS: DEXTROSE 5%-NORMAL SALINE 1,000 ML IV SCH ×2 (05:45→17:14)
[2021-10-16] MEDS: FAMOTIDINE 20 MG TABLET PO SCH (09:37)
[2021-10-16] MEDS: POLYETHYLENE GLYCOL (HEALTHYLAX) 3350 17 GM PACKET PO SCH ×2 (09:37→21:30)
[2021-10-16] MEDS: OLANZapine 10 MG TABLET PO SCH (09:37)
[2021-10-16] MEDS: MULTIVIT-MINERALS ORAL LIQUID PO SCH (09:37)
[2021-10-16] MEDS: TAMSULOSIN HCL 0.4 MG CAP PO SCH (17:14)
[2021-10-16] MEDS: MIRTAZAPINE 15 MG TABLET (FP) PO SCH (21:28)
[2021-10-16] MEDS: GABAPENTIN 100 MG CAPSULE PO SCH (21:29)
[2021-10-16] MEDS: risperiDONE 1 MG TABLET PO SCH (21:30)
[2021-10-16] MEDS: ATORVASTATIN CA 20 MG TABLET (FP) PO SCH (21:30)
[2021-10-17] MEDS: LORazepam 2 MG/ML SDV VIAL IVPUSH PRN ×2 (02:30→16:47)
[2021-10-17] MEDS: DEXTROSE 5%-NORMAL SALINE 1,000 ML IV SCH ×2 (05:42→17:05)
[2021-10-17] MEDS: OLANZapine 10 MG TABLET PO SCH (09:59)
[2021-10-17] MEDS: FAMOTIDINE 20 MG TABLET PO SCH (09:59)
[2021-10-17] MEDS: MULTIVIT-MINERALS ORAL LIQUID PO SCH (09:59)
[2021-10-17] MEDS: POLYETHYLENE GLYCOL (HEALTHYLAX) 3350 17 GM PACKET PO SCH ×2 (09:59→21:17)
[2021-10-17] MEDS: TAMSULOSIN HCL 0.4 MG CAP PO SCH (17:06)
[2021-10-17 18:12] LABS: SARS-CoV-2 NAA Not Detected (Not Detected)
[2021-10-17] MEDS: GABAPENTIN 100 MG CAPSULE PO SCH (21:17)
[2021-10-17] MEDS: risperiDONE 1 MG TABLET PO SCH (21:18)
[2021-10-17] MEDS: ATORVASTATIN CA 20 MG TABLET (FP) PO SCH (21:18)
[2021-10-17] MEDS: MIRTAZAPINE 15 MG TABLET (FP) PO SCH (21:18)
[2021-10-18] MEDS: LORazepam 2 MG/ML SDV VIAL IVPUSH PRN ×2 (05:13→11:41)
[2021-10-18] MEDS: DEXTROSE 5%-NORMAL SALINE 1,000 ML IV SCH (05:13)
[2021-10-18] MEDS: MULTIVIT-MINERALS ORAL LIQUID PO SCH (10:54)
[2021-10-18] MEDS: FAMOTIDINE 20 MG TABLET PO SCH (10:54)
[2021-10-18] MEDS: OLANZapine 10 MG TABLET PO SCH (10:54)
[2021-10-18] MEDS: POLYETHYLENE GLYCOL (HEALTHYLAX) 3350 17 GM PACKET PO SCH (10:54)
[2021-10-18 14:15] VITALS: BP 137/85; PULSE 117; TEMP 98.7
== END 2021-10-18 17:59 | DRG 177 ==
LOC: JER 16:06 → JERBED 17:32 → J6S 10-06 06:19
PROVIDERS: ADMIT Hospitalist; ATTEND Internal Medicine
DX: J69.0 Pneumonitis due to inhalation of food and vomit (principal); E43 Unspecified severe protein-calorie malnutrition; Z68.1 Body mass index [BMI] 19.9 or less, adult; F20.0 Paranoid schizophrenia; R64 Cachexia; E87.0 Hyperosmolality and hypernatremia; J98.11 Atelectasis; R62.7 Adult failure to thrive; J44.9 Chronic obstructive pulmonary disease, unspecified; D64.9 Anemia, unspecified; K59.00 Constipation, unspecified; R13.10 Dysphagia, unspecified; E78.00 Pure hypercholesterolemia, unspecified; N28.89 Other specified disorders of kidney and ureter; E86.0 Dehydration; F03.90 Unspecified dementia, unspecified severity, without behavioral disturbance, psychotic disturbance, mood disturbance, and anxiety; R41.82 Altered mental status, unspecified; D50.9 Iron deficiency anemia, unspecified; F31.9 Bipolar disorder, unspecified; N40.1 Benign prostatic hyperplasia with lower urinary tract symptoms; R33.8 Other retention of urine; F41.0 Panic disorder [episodic paroxysmal anxiety]; K21.00 Gastro-esophageal reflux disease with esophagitis, without bleeding; E87.8 Other disorders of electrolyte and fluid balance, not elsewhere classified; E78.5 Hyperlipidemia, unspecified; R29.6 Repeated falls; N18.9 Chronic kidney disease, unspecified; M50.321 Other cervical disc degeneration at C4-C5 level; R91.8 Other nonspecific abnormal finding of lung field; N28.1 Cyst of kidney, acquired
CPT/HCPCS: 36415; 70450-TC; 71045-TC-FY; 71250-TC; 72125-TC; 74177-TC; 80048; 80053; 81003; 82962; 83605; 83735; 84100; 84439; 84443; 84484; 85025; 85610; 85730; 86850; 86900; 86901; 87086; 87186; 93005; 93010; 99285-25; C9803-CS; J1644; J2794; Q9967; U0003; U0005

== ENCOUNTER 2022-02-22 12:24 | Emergency (ER) | payer OTHER ==
[2022-02-22 12:39] VITALS: TEMP 97.3; BMI 21.7
[2022-02-22 18:01] VITALS: BP 121/54; PULSE 72; RESP 14
== END 2022-02-22 17:59 ==
LOC: JER 12:24
DX: R68.89 Other general symptoms and signs (principal); W19.XXXA Unspecified fall, initial encounter
CPT/HCPCS: 70450-TC; 72125-TC; 99284-25

== ENCOUNTER 2022-03-23 09:12 | Emergency (ER) | payer OTHER ==
[2022-03-23 10:40] VITALS: RESP 16; BMI 16.2
[2022-03-23 13:17] VITALS: BP 120/75; PULSE 75; TEMP 98.2
== END 2022-03-23 13:18 ==
LOC: JER 09:12
DX: S80.811A Abrasion, right lower leg, initial encounter (principal); S80.812A Abrasion, left lower leg, initial encounter; W01.0XXA Fall on same level from slipping, tripping and stumbling without subsequent striking against object, initial encounter
CPT/HCPCS: 70450-TC; 93005; 93010; 99284-25